=== PATIENT | female | born 1930 | race Hispanic/Latino ===

== ENCOUNTER 2016-09-20 11:00 | Inpatient (IN) | payer MEDICARE, OTHER ==
[2016-09-20 11:01] VITALS: BMI 22.6
[2016-09-20] MEDS ORDERED: Vancomycin 1gm in NS 250ml 250 ML IVPB STA (11:31)
--- NOTE | 2016-09-20 11:32 | ED PDOC ---
Arrival/HPI - General Chief Complaint: Lower Extremity Problem/Injury Time Seen by Provider: 09/20/16 11:23 Historian: Patient - History of Present Illness Narrative History of Present Illness (Text): 09/20/16 11:29 A 85 year old female was sent into the emergency department by Dr. Mota for an infection in her left 2nd toe. Patient had an xray done on 09/14/16 which showed osteomyelitis. Patient denies any fever, nausea, vomiting, diarrhea, abdominal pain, chest pain, shortness of breath or any other complaints. Patient reports she is taking Levaquin. PMD: Dr. Hernandez Time/Duration: Other (months) Symptom Course: Unchanged Quality: Other Context: Home Associated Symptoms (Text): 09/20/16 11:42 Had outpatient x-rays showing left second toe osteomyelitis and directed to emergency department for admission. Patient failed outpatient by mouth Levaquin. Past Medical History - Provider Review Nursing Documentation Reviewed: Yes - Tetanus Immunization Tetanus Immunization: Unknown - Cardiac Hx Cardiac Disorders: Yes Hx Hypertension: Yes - Pulmonary Hx Respiratory Disorders: Yes Hx Asthma: No Hx Bronchitis: Yes Hx Emphysema: No Hx Pneumonia: Yes Hx Respiratory Aspiration: No Hx Respiratory Tract Infection: No Hx Sleep Apnea: No Hx Tuberculosis: No - Neurological HX Cerebrovascular Accident: Yes - HEENT Hx HEENT Disorder: Yes (detatched retina) - Renal Hx Renal Disorder: No - Endocrine/Metabolic Hx Diabetes Mellitus Type 2: Yes - Hematological/Oncological Hx Blood Transfusions: No Hx Blood Transfusion Reaction: No - Integumentary Hx Dermatological Disorder: No - Musculoskeletal/Rheumatological Hx Arthritis: Yes - Gastrointestinal Hx Gastrointestinal Disorders: No - Genitourinary/Gynecological Hx Genitourinary Disorders: No - Psychiatric Hx Psychophysiologic Disorder: Yes Hx Anxiety: Yes Hx Substance Use: No - Surgical History Hx Cardiac Catheterization: No Hx Coronary Stent: No - Anesthesia Hx Anesthesia Reactions: No Hx Malignant Hyperthermia: No Family/Social History - Physician Review Nursing Documentation Reviewed: Yes Family/Social History: No Known Family HX Smoking Status: Never Smoked Hx Alcohol Use: No Hx Substance Use: No Allergies/Home Meds Allergies/Adverse Reactions: Allergies Penicillins Allergy (Verified 03/07/16 11:19) RASH flu vaccine Allergy (Uncoded 03/07/16 11:19) RASH Home Medications: Home Meds Medication Instructions Recorded Confirmed Warfarin [Coumadin] 3 mg PO .SEE COMMENTS 05/07/13 03/07/16 Alprazolam [Xanax] 0.25 mg PO QID 05/08/13 03/07/16 Digoxin 0.25 mg PO DAILY 05/08/13 03/07/16 Esomeprazole Magnesium [Nexium] 40 mg PO DAILY 05/08/13 03/07/16 GlipiZIDE [Glucotrol] 5 mg PO BID 05/08/13 03/07/16 Metformin HCl [Metformin] 1,000 mg PO DAILY 05/08/13 03/07/16 [place]ine 2% Opht [Isopto 0 drop TD Q6 05/08/13 03/07/16 Carpine 2% Opht Soln] Simvastatin [Simvastatin] 20 mg PO DAILY 05/08/13 03/07/16 Atenolol [Atenolol] 25 mg PO DAILY 03/07/16 03/07/16 Calcium Citrate [Calcium Citrate] 500 mg PO DAILY 03/07/16 03/07/16 Escitalopram [Lexapro] 20 mg PO DAILY 03/07/16 03/07/16 SITagliptin [Januvia] 50 mg PO DAILY 03/07/16 03/07/16 Review of Systems - Physician Review All systems were reviewed & negative as marked: Yes - Review of Systems Constitutional: absent: Fevers Respiratory: absent: SOB Cardiovascular: absent: Chest Pain Gastrointestinal: absent: Abdominal Pain, Diarrhea, Nausea, Vomiting Skin: Other (Infection in left 2nd toe) Physical Exam Vital Signs Reviewed: Yes Vital Signs Temp Pulse Resp BP Pulse Ox 09/20/16 11:15 97.6 F 72 16 151/76 H 98 Temperature: Afebrile Blood Pressure: Hypertensive Pulse: Regular Respiratory Rate: Normal Appearance: Positive for: Well-Appearing, Non-Toxic, Comfortable Pain Distress: None Mental Status: Positive for: Alert and Oriented X 3 - Systems Exam Head: Present: Atraumatic, Normocephalic Pupils: Present: PERRL Extroacular Muscles: Present: EOMI Conjunctiva: Present: Normal Respiratory/Chest: Present: Clear to Auscultation, Good Air Exchange. No: Respiratory Distress, Accessory Muscle Use Cardiovascular: Present: Regular Rate and Rhythm, Normal S1, S2. No: Murmurs Lower Extremity: Present: NORMAL PULSES, Other (Left 2nd toe ulcer). No: Edema , CALF TENDERNESS Neurological: Present: GCS=15, CN II-XII Intact, Speech Normal, Motor Func Grossly Intact Skin: Present: Warm, Dry, Normal Color. No: Rashes Psychiatric: Present: Alert, Oriented x 3, Normal Insight, Normal Concentration Medical Decision Making ED Course and Treatment: 09/20/16 11:29 Impression: A 85 year old female with a left 2nd toe infection Plan: -- Chest xray -- EKG -- Labs -- Blood culture -- Vancomycin -- Reassess and disposition Prior Visits: Notes and results from previous visits were reviewed. Patient had a foot xray done on 09/14/16, which showed: Report Date : 09/14/2016 15:18:02 PROCEDURE: Left Foot Radiographs. Dictator : Joe Benitez MD IMPRESSION: Radiographic findings 2nd digit suggestive of acute osteomyelitis. Progress Notes: 09/20/16 11:43 Discussed with who will admit 09/20/16 12:07 EKG shows normal sinus rhythm rate approximately 70 with a primary AV block and an intraventricular conduction delay with poor R waves and Q waves inferiorly similar to EKG of 03/07/2060 - RAD Interpretation Radiology Orders: 09/20/16 11:29 CHEST PORTABLE [RAD] Stat - Medication Orders Current Medication Orders: Vancomycin HCl (Vancomycin 1gm) 250 mls @ 167 mls/hr IVPB STAT STA PRN Reason: Protocol Stop: 09/20/16 13:00 - Scribe Statement The provider has reviewed the documentation as recorded by the Kira Arias Provider Scribe Attestation: All medical record entries made by the Scribe were at my direction and personally dictated by me. I have reviewed the chart and agree that the record accurately reflects my personal performance of the history, physical exam, medical decision making, and the department course for this patient. I have also personally directed, reviewed, and agree with the discharge instructions and disposition. Disposition/Present on Arrival - Present on Arrival Any Indicators Present on Arrival: No History of DVT/PE: No History of Uncontrolled Diabetes: No Urinary Catheter: No History of Decub. Ulcer: No History Surgical Site Infection Following: None - Disposition Have Diagnosis and Disposition been Completed?: Yes Diagnosis: Osteomyelitis of toe Disposition: HOSPITALIZED Disposition Time: 11:43 Patient Plan: Admission Patient Problems: Current Active Problems Problem Status Diagnosed Osteomyelitis of toe Acute Condition: GOOD
--- NOTE | 2016-09-20 12:34 | RAD ---
HISTORY: admit COMPARISON: 09/20/2016 FINDINGS: LUNGS: The lungs are hyperinflated and there is peribronchial thickening with chronic changes in both lungs. There is no focal consolidation. PLEURA: No significant pleural effusion identified, no pneumothorax apparent. CARDIOVASCULAR: Normal. OSSEOUS STRUCTURES: There is an S-shaped scoliosis in the thoracolumbar spine. VISUALIZED UPPER ABDOMEN: Normal. OTHER FINDINGS: None. IMPRESSION: COPD. No acute findings.
[2016-09-20 12:37] LABS: ADD MANUAL DIFF? NO
[2016-09-20 12:52] LABS: BASO # 0.03 K/mm3 (0.0-2.0); BASO % 0.3 % (0.0-3.0); EOS # 0.4 (0.0-0.7); EOS % 4.8 % (1.5-5.0); GRAN # 5.06 (1.4-6.5); GRAN % 58.8 % (50.0-68.0); HEMATOCRIT 36.7 % (36.0-48.0); LYMPH # 2.6 (1.2-3.4); LYMPH % 29.7 % (22.0-35.0); MEAN CELL VOLUME 90.4 fL (80.0-105.0); MEAN CORPUSCULAR HEMOGLOBIN 29.8 pg (25.0-35.0); MEAN PLATELET VOLUME 9.7 fl (7.0-11.0); MONO # 0.6 (0.1-0.6); MONO % 6.4 % (1.0-6.0); PLATELET COUNT 230 10^3/uL (120.0-450.0); RED CELL DISTRIBUTION WIDTH 13.3 % (11.5-14.5); WHITE BLOOD COUNT 8.6 10^3/ul (4.5-11.0)
[2016-09-20 12:59] LABS: BILIRUBIN,TOTAL 0.5 mg/dL (0.2-1.3); CALCIUM 9.4 mg/dL (8.4-10.5); POTASSIUM 4.8 mmol/L (3.6-5.0); TOTAL PROTEIN 7.6 g/dL (5.8-8.3)
[2016-09-20] MEDS ORDERED: Meropenem 1 GM in Sodium Chloride 0.9% 100 ML IVPB SCH (16:00)
[2016-09-20] MEDS ORDERED: Pneumococcal 23-Valent Vaccine IM ONE (16:13)
--- NOTE | 2016-09-20 18:36 | HP ---
HISTORY OF PRESENT ILLNESS: The patient is an 85-year-old, states she was having some pain and disco mfort along with swelling of the left second toe. She was under care of Dr. Mota. She was follow ed in the wound care center. She had ulcer on the ____ aspect of the second toe of left foot. Yeste rday she sent her for x-ray of the foot and when she received the result she was called yesterday to come to Emergency Room because it suggested acute osteomyelitis. The patient came to the ER for furt her IV antibiotic and wound care. She denies any fever or chills. No history of nausea or vomiting, no hemoptysis, no hematemesis. PAST MEDICAL HISTORY: Significant for: 1. Hypertension. 2. Coronary artery disease, status post angioplasty. 3. History of ____ischemic cardiomyopathy. 4. Non-insulin dependent diabetes. 5. Chronic atrial fibrillation. 6. Carotid stenosis. 7. History of deep venous thrombosis. 8. Hypertension. 9. Status post right toe cellulitis and osteomyelitis and had amputation done. ALLERGIES: PENICILLIN, INFLUENZA VACCINE. PAST SURGICAL HISTORY: Significant for cataract extraction. History of mandibular fracture and nasa l fracture in 06/2015 when she was transferred to [facility]. MEDICATIONS AT HOME: 1. She is on Coumadin 3 mg daily. 2. Atenolol 25 daily. 3. Calcium citrate. 4. Digoxin 0.25 daily. 5. Lexapro 20 mg daily. 6. Metformin 1000 daily. 7. Glipizide 5 mg twice a day. 8. Xanax 0.25 t.i.d. p.r.n. 9. Januvia 50 mg daily. 10. Omeprazole 40 mg daily. 11. Simvastatin 20 mg daily. SOCIAL HISTORY: She lives with her son. No history of smoking, drinking or alcohol use. PHYSICAL EXAMINATION: GENERAL: She is awake and alert, communicative. VITAL SIGNS: She is afebrile, pulse 74, respirations 20, blood pressure 147/82. LUNGS: Bilateral fair airflow, no rhonchi or crackle. HEART: S1, S2 audible. No murmur. ABDOMEN: Soft, nontender, no rebound, no guarding. NEUROLOGIC: She is awake and alert, communicative. LABORATORY DATA: WBC is 8.6, hemoglobin 12, hematocrit 36, platelet of 230. Chemistry: Sodium 137, potassium 4.8, chloride 103, CO2 ____, BUN 26, creatinine 1.1, blood sugar 156, random blood sugar 2 06. X-ray chest is unremarkable. Left foot x-ray consistent with second toe osteomyelitis. X-ray c hest shows COPD. ASSESSMENT: 1. Left second toe osteomyelitis. 2. Chronic obstructive pulmonary disease. 3. Hypertension. 4. Chronic atrial fibrillation. 5. Hyperlipidemia. 6. Coronary artery disease, status post angioplasty. PLAN: We will empirically start her on meropenem since she is ALLERGIC TO PENICILLIN AND VANCOMYCIN. Continue her on usual medication, monitor her blood sugar. Consult with Dr. Mckeon and Dr. Ximena jessica has been requested. We will continue her on her usual diabetes medications including Januvia, g lipizide and metformin, and will follow up her CBC and CMP in a.m. Mary Wilkerson MD cc: [phone] TT: 09/20/2016 18:35:35 adalberto
[2016-09-20] MEDS: Insulin Reg-MEDIUM-Coverage SC SCH ×2 (19:16→21:43)
[2016-09-20] MEDS: Digoxin 250 mcg (0.25 mg) Tab PO SCH (19:22)
[2016-09-20] MEDS: Meropenem 1 GM in Sodium Chloride 0.9% 100 ML IVPB SCH (21:56)
[2016-09-20] MEDS ORDERED: Vancomycin 500mg in NS 100 ML IVPB SCH (22:00)
[2016-09-21 06:50] LABS: INR 1.68 (0.93-1.08)
[2016-09-21] MEDS: Insulin Reg-MEDIUM-Coverage SC SCH ×4 (08:11→22:00)
--- NOTE | 2016-09-21 09:44 | CARD ---
APPROVED REPORT EKG Measurement Heart [id number] <Conclusion> Sinus rhythm with 1st degree AV block Left axis deviation LVH Inferior infarct, old Anteroseptal infarct,old Suspect lead placement issue V 4 -6
--- NOTE | 2016-09-21 09:46 | CON ---
DATE: 09/21/2016 HISTORY OF PRESENT ILLNESS: An 85-year-old female seen at bedside for consultation, evaluation and m anagement of diabetic ulcer at the distal aspect of the left second toe. The patient is being seen b eddie Mota and x-rays taken on 09/14/2016 reveal radiographic erosions suspicious for osteomyelitis . The patient is offering no new complaints and is afebrile. PAST MEDICAL HISTORY: Significant for longstanding uncontrolled non-insulin dependent diabetes, esse ntial hypertension, ischemic cardiomyopathy, atrial fibrillation, and history of deep vein thrombosis . PAST SURGICAL HISTORY: Includes angioplasty, cataract surgery. ALLERGIES: The patient has numerous allergies which include VANCOMYCIN AND PENICILLIN, FLU VACCINE. ACTIVE MEDICATIONS: Include Xanax and simvastatin, Januvia, Coumadin, metformin, Glucotrol, Lexapro, atenolol, digoxin, and Nexium. SOCIAL HISTORY: The patient lives at home with family. Denies a history of substance abuse, does no t drink alcohol, and never smoked. OBJECTIVE: Nonpalpable posterior tibial pulse and palpable dorsalis pedis pulse noted bilaterally. Absent pedal hair growth noted bilaterally. Lower extremity skin presents thin, shiny and discolored . Capillary filling time is delayed x 10. The patient has decreased protective sensation using 5.07 gram monofilament wire testing bilaterally. There is noted to be a full-thickness ulceration at the distal aspect of the left second digit. The base of the ulceration is primarily granular. There is noted to be serous drainage. Wound does probe to bone. Tip of the toe is edematous and erythematou s. There are no signs of ascending cellulitis. ASSESSMENT: Yanez grade 2 diabetic ulceration to the left distal second digit with clinical osteomy elitis. PLAN: I spoke with Dr. Mckeon, he will cover patient empirically. The plan is to order MRI to c onfirm osteomyelitis; however, the patient is showing signs of osteomyelitis and will need a distal l eft second digit amputation. Culture was taken today and submitted for sensitivity. Wound was clean sed with normal sterile saline. We will apply Bactroban and a dry sterile dressing. We will await M RI results and plan for surgery of the left second digit sometime during the week. We will continue with antibiotics as per infectious disease. Rajiv Coronado DPM cc: [phone] TT: 09/21/2016 09:45:19 Confirmation # [id number] Dictation # [id number] jn
[2016-09-21] MEDS: Digoxin 250 mcg (0.25 mg) Tab PO SCH (10:54)
[2016-09-21] MEDS: Meropenem 1 GM in Sodium Chloride 0.9% 100 ML IVPB SCH ×2 (10:55→21:39)
--- NOTE | 2016-09-21 12:43 | CON ---
DATE: 09/21/2016 The patient seen earlier today in room 375, bed 1. CHIEF COMPLAINT: Left foot infection times several days. HISTORY OF PRESENT ILLNESS: An 85-year-old female with past medical history significant for hyperten jyotsna, diabetes mellitus, bronchitis, peripheral vascular disease, TIA, CVA, arthritis, anxiety disord er who was admitted because of left foot infection of several days. The patient for possible OR as p er discussion with podiatry. The patient denies any fevers or any chills. PAST MEDICAL HISTORY: Significant for TIA, CVA, arthritis, anxiety, hypertension, diabetes, bronchit is, peripheral vascular disease, atrial fibrillation, thyroid nodules. PAST SURGICAL HISTORY: Significant for jaw surgery and a right second toe amputation. ALLERGIES: PENICILLIN AND VANCOMYCIN. SHE DEVELOPS A RASH. MEDICATIONS: At home include the patient to be on Coumadin, statin and metformin and Glucotrol, aten olol, Xanax, Lexapro. PHYSICAL EXAMINATION: GENERAL: The patient is in bed, no acute distress, answering questions appropriately. VITAL SIGNS: Temperature of 98, blood pressure is 160/70, respiratory rate of 20, heart rate of 75. HEENT: Unremarkable. NECK: Supple. LUNGS: Have decreased breath sounds. HEART: Normal S1, S2. ABDOMEN: Soft, nontender. EXTREMITIES: Examination of the left second toe there is an ulcer with erythema. LABORATORY EXAMINATION: Reveals a white count of 8.6, hemoglobin of 12, platelets of 230. Sed rate of 33. Coagulation is noted. Chemistries reveal the BUN of 26, creatinine of 1.1. C-reactive prote in is 0.9. Dr. Coronado's consultation is reviewed, plans to take the patient to the OR and schedule MRI. ASSESSMENT AND PLAN: This is an 85-year-old female with hypertension, diabetes, bronchitis, transien t ischemic attack, cerebrovascular accident, arthritis, anxiety, atrial fibrillation, thyroid nodule, left second toe ulcer and cellulitis and must rule out underlying osteomyelitis. Dr. Reynoso has star kerry the patient on daptomycin and meropenem pending OR cultures and pathology report and MRI report. Will follow closely with you. Dario Mckeon MD cc: [phone] TT: 09/21/2016 12:42:02 Confirmation # [id number] Dictation # [id number] jn
--- NOTE | 2016-09-21 16:16 | PN ---
DATE: 09/21/2016 An 85-year-old seen and examined, lying in bed, seems to be comfortable the chest pain, no shortness of breath, no nausea, vomiting or diarrhea PHYSICAL EXAMINATION: VITAL SIGNS: She is afebrile, pulse 70, respirations 20, blood pressure 167/74. LUNGS: Bilateral fair airflow, no rhonchi or crackle. HEART: S1, S2 audible. ABDOMEN: Soft, nontender, no rebound, no guarding. NEUROLOGIC: She is awake and alert, communicative. EXTREMITIES: Bilaterally no edema, no ulcer. Left second toe is in the dressing done by Dr. Coronado. LABORATORY DATA: ESR is 33. PT is 18.1, INR 1.68. Chemistry: Blood sugar is 245. Her wound cultu res done, they are pending. Blood cultures are negative. ASSESSMENT: 1. Left second toe osteomyelitis. 2. Chronic atrial fibrillation. 3. Hypertension. 4. Hyperlipidemia. 5. History of deep vein thrombosis. 6. Carotid stenosis. 7. Noninsulin dependent diabetes. PLAN: I will give her Coumadin 6 mg today since she is subtherapeutic. Currently, she is on IV anti biotic as recommended by ID. She is on glipizide 5 mg twice a day. She is on daptomycin and Januvia . Continue on digoxin. She is on Lexapro and statin, will continue that. She is also receiving janes openem, vancomycin has been discontinued. She is on metformin 1000 daily. Since her GFR is 47, will split her metformin to 500 twice a day and continue Januvia 50 daily and monitor her blood sugar, fo llow up PT/INR on Friday. Mary Wilkerson MD cc: [phone] TT: 09/21/2016 16:15:45 Confirmation # [id number] Dictation # [id number] jn
[2016-09-22] MEDS: Insulin Reg-MEDIUM-Coverage SC SCH ×4 (07:43→22:00)
[2016-09-22] MEDS: Meropenem 1 GM in Sodium Chloride 0.9% 100 ML IVPB SCH ×2 (09:50→21:20)
[2016-09-22] MEDS: Digoxin 250 mcg (0.25 mg) Tab PO SCH (09:50)
--- NOTE | 2016-09-22 13:02 | PN ---
DATE: 09/22/2016 The patient seen earlier today in 375, bed 1. No fevers and chills. PHYSICAL EXAMINATION: VITAL SIGNS: Temperature is 98, blood pressure is 160/70, respiratory rate of 18. HEENT: Unremarkable. NECK: Supple. LUNGS: Have decreased breath sounds. HEART: Normal S1, S2. ABDOMEN: Soft, nontender. LABORATORY DATA: Reveals a white count of 8.6, hemoglobin of 12, platelets of 230, sed rate is 33. Chemistries are noted. Creatinine is 1.1. Left foot culture is gram-positive cocci in clusters. Th e blood cultures are negative. Currently, the patient is on daptomycin and meropenem. ASSESSMENT AND PLAN: An 85-year-old female with hypertension, diabetes, bronchitis, transient ischem ic attack, cerebrovascular accident, arthritis, anxiety, atrial fibrillation, thyroid nodule with a l eft second toe ulcer and cellulitis. Must rule out underlying osteomyelitis. Awaiting for culture a nd MRI results. The patient is for possible surgery this week. Case discussed with PMD. Dario Mckeon MD cc: [phone] TT: 09/22/2016 13:01:31 Confirmation # [id number] Dictation # [id number] betzaida
--- NOTE | 2016-09-23 00:42 | PN ---
DATE: 09/22/2016 HISTORY OF PRESENT ILLNESS: The patient is an 85-year-old female admitted with pain in the left seco nd toe. She has been to wound care center. There is an ulceration on the second left toe. Osteomye litis of the toe is being ruled out. ID consultation, Dr. Mckeon is requested. She is currently on IV antibiotics. Denies any fever or chills. No rigors. On admission, she had mild coagulopathy . Monocytosis and mild anemia. No pain now. PAST MEDICAL HISTORY: Hypertension, coronary artery disease, ischemic cardiomyopathy, diabetes melli tus type 2, chronic atrial fibrillation, history of DVT, osteomyelitis of the right toe. ALLERGIES: PENICILLIN, FLU VACCINE. PAST SURGICAL HISTORY: Cataract extraction, mandibular fracture, nasal fracture in 2014. FAMILY HISTORY: Not significant mother or father. SOCIAL HISTORY: Lives at home. PERSONAL HISTORY: No history of smoking or alcohol abuse. No history of IV drug abuse. MEDICATIONS: Coumadin 3 mg daily, atenolol 25 mg daily, digoxin 0.25 mg daily, metformin 1000 mg heriberto ly, glipizide 5 mg daily, Xanax 0.25 mg p.o. t.i.d., Januvia 50 mg daily, omeprazole 40 mg daily, sim vastatin 20 mg daily. PHYSICAL EXAMINATION: GENERAL: Awake, alert, oriented x 3. VITAL SIGNS: Stable, afebrile, temperature 98.7, heart rate 70 per minute, blood pressure 140/60, re spiratory rate 20 per minute. HEENT: Normal. NECK: No lymphadenopathy. CHEST: Air entry present, equal bilateral. No rhonchi, no crepitation. CARDIOVASCULAR: S1, S2 normal. No murmur, no gallop. ABDOMEN: Soft, nontender, no hepatosplenomegaly. NEUROLOGIC: Awake, alert, oriented x 3. No sensory motor deficit. EXTREMITIES: Left extremity in dressing. SPINE: Normal. LYMPHADENOPATHY: None. LABORATORY DATA: White count 8.6, hemoglobin 12.1, hematocrit 36.7, platelet count 230, glucose 142. PT 18.1, INR 1.6. ASSESSMENT: 1. Left toe cellulitis. 2. Chronic obstructive pulmonary disease. 3. Hypertension. 4. Atrial fibrillation. 5. History of deep venous thrombosis. 6. Coronary artery disease, status post angioplasty. 7. Anemia. PLAN: She is currently on IV antibiotic with daptomycin and meropenem for osteomyelitis. Podiatry, Dr. Mota following. Will continue antidiabetic medications, Januvia 50 mg daily and metformin 500 mg p.o. daily. She is on Coumadin 6 mg daily. We will do PT/INR. INR was subtherapeutic on 09/21. We will repeat PT/INR tomorrow. We will continue cardiac medications, digoxin 0.25 mg daily, Lipit or 10 mg daily and atenolol 25 mg daily. Continue Xanax 2.5 mg p.o. q.i.d. for anxiety. MRI of the left foot to rule out osteomyelitis. Katelyn Dobson MD cc: [id number] TT: 09/23/2016 00:41:15 Confirmation # [id number] Dictation # [id number] mn
[2016-09-23 06:38] LABS: INR 1.52 (0.93-1.08)
--- NOTE | 2016-09-23 08:14 | CON ---
DATE: 09/21/2016 ADDENDUM VITAL SIGNS: Today reveal temperature of 98.3, pulse rate of 75, blood pressure of 147/82, respirato ry rate of 20. LABORATORY FINDINGS: Reveal a white count of 8.6, hemoglobin of 12.1, hematocrit of 36.7, platelet c ount of 230 and an ESR of 33. There is no microbiology report noted. Rajiv Coronado DPM cc: [phone] TT: 09/21/2016 10:11:58 Confirmation # [id number] Dictation # [id number] tn
[2016-09-23] MEDS: Insulin Reg-MEDIUM-Coverage SC SCH ×4 (09:06→21:41)
[2016-09-23] MEDS: Digoxin 250 mcg (0.25 mg) Tab PO SCH (09:07)
[2016-09-23] MEDS: Meropenem 1 GM in Sodium Chloride 0.9% 100 ML IVPB SCH (09:08)
--- NOTE | 2016-09-23 12:30 | PN ---
DATE: 09/23/2016 SUBJECTIVE: The patient is 85 years old. Seen and examined. Denies any chest pain, no shortness of breath, no nausea, vomiting, no diarrhea. PHYSICAL EXAMINATION: VITAL SIGNS: She is afebrile, pulse 60, respirations 17, blood pressure 160/73. LUNGS: Bilateral good airflow, no rhonchi or crackle. HEART: S1, S2 audible. ABDOMEN: Soft, nontender, no rebound, no guarding. NEUROLOGIC: She is awake and alert, communicative. EXTREMITIES: Her left second toe is in a dressing. No erythema, no rashes. LABORATORY: PT is 16.4, INR 1.52. Chemistries: Blood sugar is 95. Her foot wound culture positive for MRSA. Blood cultures are negative. She just went for MRI of the foot, results are pending. ASSESSMENT AND PLAN: 1. Left second toe osteomyelitis. 2. Chronic atrial fibrillation. 3. Hypertension. 4. Methicillin-resistant Staphylococcus aureus Wound infection. 5. Non-insulin dependent diabetes. 6. History of deep vein thrombosis. PLAN: Currently, the patient is getting local treatment. She is on Coumadin. She was given 6 mg ye day. We will give her 8 mg today. She is also on daptomycin. Blood sugar is being monitored. She is on glipizide 5 mg twice a day. Blood sugar numbers are running decent. Will continue on via 50 mg daily. She is on Lexapro. We will continue that. She is receiving meropenem. She is on metformin 500 twice a day and start her on losartan 50 mg daily. Discuss[address] with Dr. Mota. She is planning to do a second toe amputation, once MRI result for the foot is available. Mary Wilkerson MD cc: [phone] TT: 09/23/2016 12:30:01 Confirmation # [id number] Dictation # [id number] adalberto
--- NOTE | 2016-09-23 12:54 | MRI ---
PROCEDURE: MRI of the left foot without contrast. HISTORY: 2nd toe left ulcer COMPARISON: Comparison is made to the previous x-ray dated 09/14/2016 TECHNIQUE: Axial coronal and sagittal MRI of the left foot were obtained. No IV contrast was given. FINDINGS: Study demonstrate bone marrow edema and cortical erosion at the distal phalanx of the 2nd toe suspicious for osteomyelitis. No other bone marrow edema or cortical erosion seen in the left foot. Deformity of the distal phalanx of the left big toe is again noted without evidence of bone marrow edema. Soft tissue swelling and edema seen at the distal portion of the left foot more prominent in the 2nd 2. No evidence of discrete drainable fluid collection in this noncontrast study. Arthritic degenerative changes seen at the tarsal and tarsal metatarsal joints. IMPRESSION: Bone marrow edema and cortical erosion seen at the distal phalanx of the 2nd toe suspicious for osteomyelitis. Mild soft tissue edema and inflammatory changes more prominent at the 2nd toe. No evidence of discrete drainable fluid collection.
--- NOTE | 2016-09-23 16:16 | CP.PCM.PN ---
Subjective - Date & Time of Evaluation Date of Evaluation: 09/23/16 Time of Evaluation: 10:30 - Subjective Subjective: Comfortable, not in distress, no fevers overnight. Objective - Vital Signs/Intake and Output Vital Signs (last 24 hours): Temp Pulse Resp BP Pulse Ox 98.6 F 60 17 161/73 H 95 09/23/16 08:30 09/23/16 09:09 09/23/16 08:30 09/23/16 09:09 09/23/16 08:30 Intake and Output: 09/23/16 09/23/16 06:59 18:59 Intake Total 1000 Output Total 3 Balance 997 - Medications Medications: Current Medications Alprazolam (Xanax) 0.25 mg PO QID [facility] PRN Reason: Protocol Stop: 09/27/16 18:01 Last Admin: 09/23/16 09:09 Dose: 0.25 mg Atenolol (Tenormin) 25 mg PO DAILY [facility] Last Admin: 09/23/16 09:09 Dose: 25 mg Atorvastatin Calcium (Lipitor) 10 mg PO DAILY [facility] Last Admin: 09/23/16 09:08 Dose: 10 mg Digoxin (Lanoxin) 0.25 mg PO DAILY [facility] Last Admin: 09/23/16 09:07 Dose: 0.25 mg Escitalopram Oxalate (Lexapro) 20 mg PO DAILY [facility] Last Admin: 09/23/16 09:07 Dose: 20 mg Glipizide (Glucotrol) 5 mg PO BID [facility] Last Admin: 09/23/16 09:06 Dose: 5 mg Meropenem 1 gm/ Sodium (Chloride) 100 mls @ 100 mls/hr IVPB Q12 [facility] PRN Reason: Protocol Stop: 09/27/16 22:01 Last Admin: 09/23/16 09:08 Dose: 100 mls/hr Daptomycin 250 mg/ Sodium (Chloride) 100 mls @ 200 mls/hr IV Q24H [facility] PRN Reason: Protocol Stop: 09/27/16 19:01 Last Admin: 09/22/16 18:49 Dose: 200 mls/hr Insulin Human Regular (Humulin R Med) 0 units SC ACHS [facility] PRN Reason: Protocol Last Admin: 09/23/16 09:06 Dose: Not Given Metformin HCl (Glucophage) 500 mg PO ACBD [facility] Last Admin: 09/23/16 09:05 Dose: 500 mg Mupirocin (Bactroban Ointment) 0 gm TOP BID [facility] Last Admin: 09/23/16 09:05 Dose: 1 applic Sitagliptin Phosphate (Januvia) 50 mg PO DAILY [facility] Last Admin: 09/23/16 09:06 Dose: 50 mg Warfarin Sodium (Coumadin) 6 mg PO 1800 [facility] PRN Reason: Protocol Last Admin: 09/22/16 17:07 Dose: 6 mg - Labs Labs: 09/20/16 12:20 09/20/16 12:20 PT 16.4 Seconds (9.9-11.8) H 09/23/16 06:20 INR 1.52 (0.93-1.08) H 09/23/16 06:20 - Constitutional Appears: Non-toxic, No Acute Distress - Head Exam Head Exam: NORMAL INSPECTION - Respiratory Exam Respiratory Exam: Decreased Breath Sounds - Cardiovascular Exam Cardiovascular Exam: +S1, +S2 - GI/Abdominal Exam GI & Abdominal Exam: Soft. absent: Tenderness Assessment and Plan - Assessment and Plan (Free Text) Plan: Assessment left 2nd toe ulcer with evidence of osteomyelitis on MRI; ulcer growing MRSA history of osteomyelitis of the right foot 2nd toe with associated ulcer, with Methicillin-sensitive Staph aureus S/P amputation Acute renal failure HTN DM history of bronchitis history of peripheral vascular disease history of transient ischemic attack history of CVA arthritis anxiety disorder Plan continue Daptomycin; awaiting plan of Podiatry Will continue to follow clinically
--- NOTE | 2016-09-23 16:44 | CP.PCM.PN ---
<GilsonLoreto - Last Filed: 09/23/16 16:40> Subjective - Date & Time of Evaluation Date of Evaluation: 09/23/16 Time of Evaluation: 16:40 - Subjective Subjective: 85 y/o female seen at bedside for left 2nd toe ulceration at the distal aspect. Patient resting comfortably in bed, in NAD and AAOx3. Patient denies any pain in her foot and denies any pedal complaints at this time. Patient going for MRI today to rule out osteomyelitis. She denies n/f/v/c/d/sob. Objective - Vital Signs/Intake and Output Vital Signs (last 24 hours): Temp Pulse Resp BP Pulse Ox 98.6 F 60 17 161/73 H 95 09/23/16 08:30 09/23/16 09:09 09/23/16 08:30 09/23/16 09:09 09/23/16 08:30 Intake and Output: 09/23/16 09/23/16 06:59 18:59 Intake Total 1000 660 Output Total 3 Balance 997 660 - Medications Medications: Current Medications Alprazolam (Xanax) 0.25 mg PO QID [facility] PRN Reason: Protocol Stop: 09/27/16 18:01 Last Admin: 09/23/16 09:09 Dose: 0.25 mg Atenolol (Tenormin) 25 mg PO DAILY [facility] Last Admin: 09/23/16 09:09 Dose: 25 mg Atorvastatin Calcium (Lipitor) 10 mg PO DAILY [facility] Last Admin: 09/23/16 09:08 Dose: 10 mg Digoxin (Lanoxin) 0.25 mg PO DAILY [facility] Last Admin: 09/23/16 09:07 Dose: 0.25 mg Escitalopram Oxalate (Lexapro) 20 mg PO DAILY [facility] Last Admin: 09/23/16 09:07 Dose: 20 mg Glipizide (Glucotrol) 5 mg PO BID [facility] Last Admin: 09/23/16 09:06 Dose: 5 mg Daptomycin 250 mg/ Sodium (Chloride) 100 mls @ 200 mls/hr IV Q24H [facility] PRN Reason: Protocol Stop: 09/27/16 19:01 Last Admin: 09/22/16 18:49 Dose: 200 mls/hr Insulin Human Regular (Humulin R Med) 0 units SC ACHS [facility] PRN Reason: Protocol Last Admin: 09/23/16 13:30 Dose: Not Given Losartan Potassium (Cozaar) 50 mg PO DAILY [facility] Metformin HCl (Glucophage) 500 mg PO ACBD [facility] Last Admin: 09/23/16 09:05 Dose: 500 mg Mupirocin (Bactroban Ointment) 0 gm TOP BID [facility] Last Admin: 09/23/16 09:05 Dose: 1 applic Sitagliptin Phosphate (Januvia) 50 mg PO DAILY [facility] Last Admin: 09/23/16 09:06 Dose: 50 mg Warfarin Sodium (Coumadin) 8 mg PO 1800 [facility] PRN Reason: Protocol - Labs Labs: 09/20/16 12:20 09/20/16 12:20 PT 16.4 Seconds (9.9-11.8) H 09/23/16 06:20 INR 1.52 (0.93-1.08) H 09/23/16 06:20 - Constitutional Appears: Well, Non-toxic, No Acute Distress - Extremities Exam Additional comments: O: Vasc: nonpalpable DP or PT pulses bilaterally, absent pedal hair growth, lower extremity skin shiny and discolored, CFT < 5 sec to all digits neuro: grossly diminished derm; full thickness ulceration at the distal aspect of left 2nd digit- base is granular with hyperkeratotic border, serous drainage noted, no pus, no probe to bone, no undermining, no ascending cellulitis ortho: no pain on palpation to 2nd digit of left foot - Neurological Exam Neurological Exam: Alert, Awake, Oriented x3 - Psychiatric Exam Psychiatric exam: Normal Affect, Normal Mood Assessment and Plan - Assessment and Plan (Free Text) Assessment: 85 y/o female seen at bedside for left 2nd digit ulceration secondary to diabetes Plan: patient evaluated and chart reviewed discussed in detail with attending Dr. Mota labs and vitals reviewed MRI shows of left foot: cortical erosion and bone marrow edema of distal phalanx of 2nd digit consistent with OM patient go to to OR for 2nd digit distal phalanx amputation later this week patient to stop coumadin for pre-op management for OR continue IV abx as per ID applied DSD to left foot podiatry will continue to follow while patient remains in house <Janelle Mota - Last Filed: 09/27/16 14:51> Objective - Vital Signs/Intake and Output Vital Signs (last 24 hours): Temp Pulse Resp BP Pulse Ox 98.1 F 63 20 141/60 97 09/27/16 06:00 09/27/16 10:37 09/27/16 06:00 09/27/16 10:37 09/27/16 06:00 Intake and Output: 09/27/16 09/27/16 06:59 18:59 Intake Total 540 800 Output Total 400 Balance 540 400 - Medications Medications: Current Medications Acetaminophen (Tylenol 325mg Tab) 650 mg PO Q6H PRN PRN Reason: Fever >100.4 F Last Admin: 09/25/16 19:57 Dose: 650 mg Acetaminophen (Tylenol 325mg Tab) 650 mg PO Q4H [facility]N PRN Reason: Pain, Mild (1-3) Alprazolam (Xanax) 0.25 mg PO QID [facility] PRN Reason: Protocol Stop: 09/27/16 18:01 Last Admin: 09/27/16 10:37 Dose: 0.25 mg Atenolol (Tenormin) 25 mg PO DAILY [facility] Last Admin: 09/27/16 10:37 Dose: 25 mg Atorvastatin Calcium (Lipitor) 10 mg PO DAILY [facility] Last Admin: 09/27/16 10:36 Dose: 10 mg Digoxin (Lanoxin) 0.25 mg PO DAILY [facility] Last Admin: 09/27/16 10:36 Dose: 0.25 mg Enoxaparin Sodium (Lovenox) 60 mg SC 0600,1800 [facility] PRN Reason: Protocol Last Admin: 09/27/16 06:12 Dose: 60 mg Escitalopram Oxalate (Lexapro) 20 mg PO DAILY [facility] Last Admin: 09/27/16 10:36 Dose: 20 mg Glipizide (Glucotrol) 5 mg PO BID [facility] Last Admin: 09/27/16 10:36 Dose: 5 mg Daptomycin 250 mg/ Sodium (Chloride) 100 mls @ 200 mls/hr IV Q24H [facility] PRN Reason: Protocol Stop: 09/30/16 19:01 Insulin Human Regular (Humulin R Med) 0 units SC ACHS [facility] PRN Reason: Protocol Last Admin: 09/27/16 12:51 Dose: 1 units Losartan Potassium (Cozaar) 50 mg PO DAILY [facility] Last Admin: 09/27/16 10:35 Dose: 50 mg Metformin HCl (Glucophage) 500 mg PO ACBD [facility] Last Admin: 09/27/16 10:35 Dose: 500 mg Mupirocin (Bactroban Ointment) 0 gm TOP BID [facility] Last Admin: 09/27/16 10:35 Dose: 1 applic Oxycodone/Acetaminophen (Percocet 5/325 Mg Tab) 1 tab PO Q4H [facility] PRN Reason: Pain, moderate (4-7) Stop: 09/29/16 08:59 Oxycodone/Acetaminophen (Percocet 5/325 Mg Tab) 2 tab PO Q4H PRN PRN Reason: Pain, severe (8-10) Stop: 09/29/16 08:59 Sitagliptin Phosphate (Januvia) 50 mg PO DAILY [facility] Last Admin: 09/27/16 10:36 Dose: 50 mg Warfarin Sodium (Coumadin) 10 mg PO 1800 [facility] PRN Reason: Protocol Last Admin: 09/26/16 17:29 Dose: 10 mg - Labs Labs: 09/25/16 07:00 09/25/16 07:15 PT 13.4 Seconds (9.9-11.8) H 09/25/16 07:15 INR 1.24 (0.93-1.08) H 09/25/16 07:15 Attending/Attestation - Attestation I have personally seen and examined this patient.: Yes I have fully participated in the care of the patient.: Yes I have reviewed all pertinent clinical information, including history, physical exam and plan: Yes
[2016-09-24] MEDS: Insulin Reg-MEDIUM-Coverage SC SCH ×4 (10:34→21:46)
[2016-09-24] MEDS: Digoxin 250 mcg (0.25 mg) Tab PO SCH (10:44)
--- NOTE | 2016-09-24 11:00 | CP.PCM.PN ---
<Loreto Riggins - Last Filed: 09/24/16 10:56> Subjective - Date & Time of Evaluation Date of Evaluation: 09/24/16 Time of Evaluation: 10:57 - Subjective Subjective: 85 y/o female seen at bedside for left 2nd toe ulceration at the distal aspect. Patient seen at bedside with attending Dr. Mota. Patient is resting comfortably, in NAD and AAOx3. Patient denies any pain in her foot and denies any pedal complaints at this time. Patient had MRI taken yesterday to rule out osteomyelitis. She denies n/f/v/c/d/sob. Objective - Vital Signs/Intake and Output Vital Signs (last 24 hours): Temp Pulse Resp BP Pulse Ox 97.9 F 80 20 120/60 97 09/24/16 09:04 09/24/16 10:44 09/24/16 09:04 09/24/16 10:44 09/24/16 09:04 Intake and Output: 09/24/16 09/24/16 06:59 18:59 Intake Total 620 120 Balance 620 120 - Medications Medications: Current Medications Alprazolam (Xanax) 0.25 mg PO QID [facility] PRN Reason: Protocol Stop: 09/27/16 18:01 Last Admin: 09/24/16 10:45 Dose: 0.25 mg Atenolol (Tenormin) 25 mg PO DAILY [facility] Last Admin: 09/24/16 10:44 Dose: 25 mg Atorvastatin Calcium (Lipitor) 10 mg PO DAILY [facility] Last Admin: 09/24/16 10:44 Dose: 10 mg Digoxin (Lanoxin) 0.25 mg PO DAILY [facility] Last Admin: 09/24/16 10:44 Dose: 0.25 mg Escitalopram Oxalate (Lexapro) 20 mg PO DAILY [facility] Last Admin: 09/24/16 10:44 Dose: 20 mg Glipizide (Glucotrol) 5 mg PO BID [facility] Last Admin: 09/24/16 10:44 Dose: 5 mg Daptomycin 250 mg/ Sodium (Chloride) 100 mls @ 200 mls/hr IV Q24H [facility] PRN Reason: Protocol Stop: 09/27/16 19:01 Last Admin: 09/23/16 22:28 Dose: 200 mls/hr Insulin Human Regular (Humulin R Med) 0 units SC ACHS [facility] PRN Reason: Protocol Last Admin: 09/24/16 10:34 Dose: Not Given Losartan Potassium (Cozaar) 50 mg PO DAILY [facility] Last Admin: 09/24/16 10:43 Dose: 50 mg Metformin HCl (Glucophage) 500 mg PO ACBD [facility] Last Admin: 09/24/16 10:46 Dose: 500 mg Mupirocin (Bactroban Ointment) 0 gm TOP BID [facility] Last Admin: 09/24/16 10:37 Dose: 1 applic Sitagliptin Phosphate (Januvia) 50 mg PO DAILY [facility] Last Admin: 09/24/16 10:44 Dose: 50 mg Warfarin Sodium (Coumadin) 8 mg PO 1800 [facility] PRN Reason: Protocol - Labs Labs: 09/20/16 12:20 09/20/16 12:20 PT 16.4 Seconds (9.9-11.8) H 09/23/16 06:20 INR 1.52 (0.93-1.08) H 09/23/16 06:20 - Constitutional Appears: Well, Non-toxic, No Acute Distress - Extremities Exam Additional comments: O: Vasc: nonpalpable DP or PT pulses bilaterally, absent pedal hair growth, lower extremity skin shiny and discolored, CFT < 5 sec to all digits neuro: grossly diminished derm; full thickness ulceration at the distal aspect of left 2nd digit- base is granular with hyperkeratotic border, serous drainage noted, no pus, no probe to bone, no undermining, no ascending cellulitis ortho: no pain on palpation to 2nd digit of left foot - Neurological Exam Neurological Exam: Alert, Awake, Oriented x3 - Psychiatric Exam Psychiatric exam: Normal Affect, Normal Mood Assessment and Plan - Assessment and Plan (Free Text) Assessment: 85 y/o female seen at bedside for left 2nd digit ulceration secondary to diabetes Plan: patient evaluated and chart reviewed discussed in detail with attending Dr. Mota labs and vitals reviewed MRI shows of left foot: cortical erosion and bone marrow edema of distal phalanx of 2nd digit consistent with OM patient go to to OR for 2nd digit distal phalanx amputation on continue to hold coumadin for pre-op management for OR continue IV abx as per ID wound cx = MRSA applied DSD to left foot podiatry will continue to follow while patient remains in house <Janelle Mota - Last Filed: 09/27/16 14:53> Objective - Vital Signs/Intake and Output Vital Signs (last 24 hours): Temp Pulse Resp BP Pulse Ox 98.1 F 63 20 141/60 97 09/27/16 06:00 09/27/16 10:37 09/27/16 06:00 09/27/16 10:37 09/27/16 06:00 Intake and Output: 09/27/16 09/27/16 06:59 18:59 Intake Total 540 800 Output Total 400 Balance 540 400 - Medications Medications: Current Medications Acetaminophen (Tylenol 325mg Tab) 650 mg PO Q6H PRN PRN Reason: Fever >100.4 F Last Admin: 09/25/16 19:57 Dose: 650 mg Acetaminophen (Tylenol 325mg Tab) 650 mg PO Q4H PRN PRN Reason: Pain, Mild (1-3) Alprazolam (Xanax) 0.25 mg PO QID [facility] PRN Reason: Protocol Stop: 09/27/16 18:01 Last Admin: 09/27/16 10:37 Dose: 0.25 mg Atenolol (Tenormin) 25 mg PO DAILY [facility] Last Admin: 09/27/16 10:37 Dose: 25 mg Atorvastatin Calcium (Lipitor) 10 mg PO DAILY [facility] Last Admin: 09/27/16 10:36 Dose: 10 mg Digoxin (Lanoxin) 0.25 mg PO DAILY [facility] Last Admin: 09/27/16 10:36 Dose: 0.25 mg Enoxaparin Sodium (Lovenox) 60 mg SC 0600,1800 [facility] PRN Reason: Protocol Last Admin: 09/27/16 06:12 Dose: 60 mg Escitalopram Oxalate (Lexapro) 20 mg PO DAILY [facility] Last Admin: 09/27/16 10:36 Dose: 20 mg Glipizide (Glucotrol) 5 mg PO BID [facility] Last Admin: 09/27/16 10:36 Dose: 5 mg Daptomycin 250 mg/ Sodium (Chloride) 100 mls @ 200 mls/hr IV Q24H [facility] PRN Reason: Protocol Stop: 09/30/16 19:01 Insulin Human Regular (Humulin R Med) 0 units SC ACHS [facility] PRN Reason: Protocol Last Admin: 09/27/16 12:51 Dose: 1 units Losartan Potassium (Cozaar) 50 mg PO DAILY [facility] Last Admin: 09/27/16 10:35 Dose: 50 mg Metformin HCl (Glucophage) 500 mg PO ACBD [facility] Last Admin: 09/27/16 10:35 Dose: 500 mg Mupirocin (Bactroban Ointment) 0 gm TOP BID [facility] Last Admin: 09/27/16 10:35 Dose: 1 applic Oxycodone/Acetaminophen (Percocet 5/325 Mg Tab) 1 tab PO Q4H PRN PRN Reason: Pain, moderate (4-7) Stop: 09/29/16 08:59 Oxycodone/Acetaminophen (Percocet 5/325 Mg Tab) 2 tab PO Q4H PRN PRN Reason: Pain, severe (8-10) Stop: 09/29/16 08:59 Sitagliptin Phosphate (Januvia) 50 mg PO DAILY [facility] Last Admin: 09/27/16 10:36 Dose: 50 mg Warfarin Sodium (Coumadin) 10 mg PO 1800 [facility] PRN Reason: Protocol Last Admin: 09/26/16 17:29 Dose: 10 mg - Labs Labs: 09/25/16 07:00 09/25/16 07:15 PT 13.4 Seconds (9.9-11.8) H 09/25/16 07:15 INR 1.24 (0.93-1.08) H 09/25/16 07:15 Attending/Attestation - Attestation I have personally seen and examined this patient.: Yes I have fully participated in the care of the patient.: Yes I have reviewed all pertinent clinical information, including history, physical exam and plan: Yes
--- NOTE | 2016-09-24 13:28 | PN ---
DATE: 09/24/2016 SUBJECTIVE: The patient is 85 years old, seen and examined, lying in bed, seemed to be comfortable. No chest pain, no shortness of breath, no nausea, vomiting, no diarrhea. PHYSICAL EXAMINATION: VITAL SIGNS: She is afebrile, pulse 80, respirations 20, blood pressure 120/60. LUNGS: Bilateral good airflow, no rhonchi or crackle. HEART: S1, S2 audible. No murmur. ABDOMEN: Soft, nontender, no rebound, no guarding. NEUROLOGIC: She is awake and alert, communicative. Moves all extremities. EXTREMITIES: Her left foot is in the dressing. She has wound culture positive for MRSA. Her ESR is 33. She has an MRI of the foot done that shows bone marrow edema, cortical erosion seen at the distal phalanx of the second suspicious for osteomyel itis, mild soft tissue edema and inflammatory changes, more prominent at the second toe. ASSESSMENT AND PLAN: 1. Left second toe osteomyelitis. 2. Chronic atrial fibrillation. 3. Hypertension. 4. Hyperlipidemia. 5. Chronic atrial fibrillation, on Coumadin, but has been on hold. I will cover her with Lovenox. We will continue local wound care. She is on losartan. She is on daptomycin. She is on glipizide. I will monitor her blood sugar. We will continue her on digoxin and atenolol. Monitor her blood rouse gar and we will reevaluate patient in a.m. Mary Wilkerson MD cc: [phone] TT: 09/24/2016 13:27:30 Confirmation # [id number] Dictation # [id number]
--- NOTE | 2016-09-24 14:13 | CP.PCM.PN ---
Subjective - Date & Time of Evaluation Date of Evaluation: 09/24/16 Time of Evaluation: 09:25 - Subjective Subjective: No acute events overnight, no fevers, not in distress. Objective - Vital Signs/Intake and Output Vital Signs (last 24 hours): Temp Pulse Resp BP Pulse Ox 98.7 F 60 19 145/65 98 09/23/16 16:00 09/23/16 17:13 09/23/16 16:00 09/23/16 17:13 09/23/16 16:00 Intake and Output: 09/24/16 09/24/16 06:59 18:59 Intake Total 620 120 Balance 620 120 - Medications Medications: Current Medications Alprazolam (Xanax) 0.25 mg PO QID [facility] PRN Reason: Protocol Stop: 09/27/16 18:01 Last Admin: 09/23/16 22:28 Dose: 0.25 mg Atenolol (Tenormin) 25 mg PO DAILY [facility] Last Admin: 09/23/16 09:09 Dose: 25 mg Atorvastatin Calcium (Lipitor) 10 mg PO DAILY [facility] Last Admin: 09/23/16 09:08 Dose: 10 mg Digoxin (Lanoxin) 0.25 mg PO DAILY [facility] Last Admin: 09/23/16 09:07 Dose: 0.25 mg Escitalopram Oxalate (Lexapro) 20 mg PO DAILY [facility] Last Admin: 09/23/16 09:07 Dose: 20 mg Glipizide (Glucotrol) 5 mg PO BID [facility] Last Admin: 09/23/16 17:14 Dose: 5 mg Daptomycin 250 mg/ Sodium (Chloride) 100 mls @ 200 mls/hr IV Q24H [facility] PRN Reason: Protocol Stop: 09/27/16 19:01 Last Admin: 09/23/16 22:28 Dose: 200 mls/hr Insulin Human Regular (Humulin R Med) 0 units SC ACHS [facility] PRN Reason: Protocol Last Admin: 09/23/16 21:41 Dose: Not Given Losartan Potassium (Cozaar) 50 mg PO DAILY [facility] Last Admin: 09/23/16 17:13 Dose: 50 mg Metformin HCl (Glucophage) 500 mg PO ACBD [facility] Last Admin: 09/23/16 17:14 Dose: 500 mg Mupirocin (Bactroban Ointment) 0 gm TOP BID [facility] Last Admin: 09/23/16 17:12 Dose: 1 applic Sitagliptin Phosphate (Januvia) 50 mg PO DAILY [facility] Last Admin: 09/23/16 09:06 Dose: 50 mg Warfarin Sodium (Coumadin) 8 mg PO 1800 [facility] PRN Reason: Protocol - Labs Labs: 09/20/16 12:20 09/20/16 12:20 PT 16.4 Seconds (9.9-11.8) H 09/23/16 06:20 INR 1.52 (0.93-1.08) H 09/23/16 06:20 - Constitutional Appears: Non-toxic, No Acute Distress - Head Exam Head Exam: NORMAL INSPECTION - Neck Exam Neck Exam: absent: Lymphadenopathy, Meningismus - Respiratory Exam Respiratory Exam: Decreased Breath Sounds - Cardiovascular Exam Cardiovascular Exam: +S1, +S2 - GI/Abdominal Exam GI & Abdominal Exam: Soft. absent: Tenderness - Extremities Exam Additional comments: left foot with dressings in place Assessment and Plan - Assessment and Plan (Free Text) Plan: Assessment left 2nd toe ulcer with evidence of osteomyelitis on MRI; ulcer growing MRSA history of osteomyelitis of the right foot 2nd toe with associated ulcer, with Methicillin-sensitive Staph aureus S/P amputation Acute renal failure HTN DM history of bronchitis history of peripheral vascular disease history of transient ischemic attack history of CVA arthritis anxiety disorder Plan continue Daptomycin; awaiting surgery scheduled for Will continue to follow clinically
[2016-09-24] MEDS: Enoxaparin 60 mg Syringe SC SCH (14:43)
[2016-09-25] MEDS: Enoxaparin 60 mg Syringe SC SCH ×2 (00:50→13:58)
[2016-09-25 07:39] LABS: ADD MANUAL DIFF? NO
[2016-09-25 07:51] LABS: BASO # 0.04 K/mm3 (0.0-2.0); BASO % 0.5 % (0.0-3.0); EOS # 0.4 (0.0-0.7); EOS % 5.5 % (1.5-5.0); GRAN # 3.79 (1.4-6.5); GRAN % 48.3 % (50.0-68.0); HEMATOCRIT 35.6 % (36.0-48.0); LYMPH # 2.9 (1.2-3.4); LYMPH % 36.4 % (22.0-35.0); MEAN CELL VOLUME 89.4 fL (80.0-105.0); MEAN CORPUSCULAR HEMOGLOBIN 29.6 pg (25.0-35.0); MEAN CORPUSCULAR HGB CONC 33.1 g/dl (31.0-37.0); MEAN PLATELET VOLUME 9.7 fl (7.0-11.0); MONO # 0.7 (0.1-0.6); MONO % 9.3 % (1.0-6.0); PLATELET COUNT 208 10^3/uL (120.0-450.0); RED CELL DISTRIBUTION WIDTH 13.1 % (11.5-14.5); WHITE BLOOD COUNT 7.8 10^3/ul (4.5-11.0)
[2016-09-25 07:52] LABS: INR 1.24 (0.93-1.08)
[2016-09-25 08:20] LABS: ALKALINE PHOSPHATASE 36 U/L (38-133); ALT/SGPT 16 U/L (7-56); AST/SGOT 29 U/L (15-39); BILIRUBIN,TOTAL 0.5 mg/dL (0.2-1.3); BLOOD UREA NITROGEN 27 mg/dL (7-21); CALCIUM 8.8 mg/dL (8.4-10.5); CARBON DIOXIDE 26 mmol/L (21-33); CHLORIDE 101 mmol/L (98-107); GFR AFRICAN-AMERICAN > 60; GLUCOSE,RANDOM 95 mg/dL (70-110); POTASSIUM 4.2 mmol/L (3.6-5.0); SODIUM 138 mmol/L (132-148); TOTAL PROTEIN 7.1 g/dL (5.8-8.3)
--- NOTE | 2016-09-25 08:30 | CP.PCM.PN ---
<Arlyn Rigginsa - Last Filed: 09/25/16 08:28> Subjective - Date & Time of Evaluation Date of Evaluation: 09/25/16 Time of Evaluation: 08:28 - Subjective Subjective: 85 y/o female seen at bedside with attending Dr. Mota, for left 2nd toe ulceration at the distal aspect. Patient is resting comfortably, in NAD and AAOx3. Patient denies any pain in her foot and denies any pedal complaints at this time. patient's dressing remains clean,dry,intact to left foot. She denies n/f/v/c/d/sob. Objective - Vital Signs/Intake and Output Vital Signs (last 24 hours): Temp Pulse Resp BP Pulse Ox 98 F 62 19 135/60 97 09/24/16 16:00 09/24/16 16:00 09/24/16 16:00 09/24/16 16:00 09/24/16 16:00 Intake and Output: 09/25/16 09/25/16 06:59 18:59 Intake Total 300 0 Balance 300 0 - Medications Medications: Current Medications Alprazolam (Xanax) 0.25 mg PO QID [facility] PRN Reason: Protocol Stop: 09/27/16 18:01 Last Admin: 09/24/16 21:27 Dose: 0.25 mg Atenolol (Tenormin) 25 mg PO DAILY [facility] Last Admin: 09/24/16 10:44 Dose: 25 mg Atorvastatin Calcium (Lipitor) 10 mg PO DAILY [facility] Last Admin: 09/24/16 10:44 Dose: 10 mg Digoxin (Lanoxin) 0.25 mg PO DAILY [facility] Last Admin: 09/24/16 10:44 Dose: 0.25 mg Enoxaparin Sodium (Lovenox) 60 mg SC Q12H [facility] PRN Reason: Protocol Last Admin: 09/25/16 00:50 Dose: 60 mg Escitalopram Oxalate (Lexapro) 20 mg PO DAILY [facility] Last Admin: 09/24/16 10:44 Dose: 20 mg Glipizide (Glucotrol) 5 mg PO BID [facility] Last Admin: 09/24/16 18:00 Dose: 5 mg Daptomycin 250 mg/ Sodium (Chloride) 100 mls @ 200 mls/hr IV Q24H [facility] PRN Reason: Protocol Stop: 09/27/16 19:01 Last Admin: 09/23/16 22:28 Dose: 200 mls/hr Insulin Human Regular (Humulin R Med) 0 units SC ACHS [facility] PRN Reason: Protocol Last Admin: 09/24/16 21:46 Dose: Not Given Losartan Potassium (Cozaar) 50 mg PO DAILY [facility] Last Admin: 09/24/16 10:43 Dose: 50 mg Metformin HCl (Glucophage) 500 mg PO ACBD [facility] Last Admin: 09/24/16 18:00 Dose: 500 mg Mupirocin (Bactroban Ointment) 0 gm TOP BID [facility] Last Admin: 09/24/16 17:50 Dose: 1 applic Sitagliptin Phosphate (Januvia) 50 mg PO DAILY [facility] Last Admin: 09/24/16 10:44 Dose: 50 mg - Labs Labs: 09/25/16 07:00 09/25/16 07:15 PT 13.4 Seconds (9.9-11.8) H 09/25/16 07:15 INR 1.24 (0.93-1.08) H 09/25/16 07:15 - Constitutional Appears: Well, Non-toxic, No Acute Distress - Extremities Exam Additional comments: O: Vasc: nonpalpable DP or PT pulses bilaterally, absent pedal hair growth, lower extremity skin shiny and discolored, CFT < 5 sec to all digits neuro: grossly diminished derm; full thickness ulceration at the distal aspect of left 2nd digit- base is granular with hyperkeratotic border, serous drainage noted, no pus, no probe to bone, no undermining, no ascending cellulitis ortho: no pain on palpation to 2nd digit of left foot - Neurological Exam Neurological Exam: Alert, Awake, Oriented x3 - Psychiatric Exam Psychiatric exam: Normal Affect, Normal Mood Assessment and Plan - Assessment and Plan (Free Text) Assessment: 85 y/o female seen at bedside for left 2nd digit ulceration secondary to diabetes Plan: patient evaluated and chart reviewed discussed in detail with attending Dr. Mota labs and vitals reviewed MRI shows of left foot: cortical erosion and bone marrow edema of distal phalanx of 2nd digit consistent with OM patient to OR tomorrow, 09/26/16 @ 4pm for left 2nd digit distal phalanx amputation continue to hold coumadin for pre-op management for OR continue IV abx as per ID patient NPO after midnight wound cx = MRSA applied DSD to left foot podiatry will continue to follow while patient remains in house <Janelle Mota - Last Filed: 09/27/16 14:53> Objective - Vital Signs/Intake and Output Vital Signs (last 24 hours): Temp Pulse Resp BP Pulse Ox 98.1 F 63 20 141/60 97 09/27/16 06:00 09/27/16 10:37 09/27/16 06:00 09/27/16 10:37 09/27/16 06:00 Intake and Output: 09/27/16 09/27/16 06:59 18:59 Intake Total 540 800 Output Total 400 Balance 540 400 - Medications Medications: Current Medications Acetaminophen (Tylenol 325mg Tab) 650 mg PO Q6H PRN PRN Reason: Fever >100.4 F Last Admin: 09/25/16 19:57 Dose: 650 mg Acetaminophen (Tylenol 325mg Tab) 650 mg PO Q4H [facility] PRN Reason: Pain, Mild (1-3) Alprazolam (Xanax) 0.25 mg PO QID [facility] PRN Reason: Protocol Stop: 09/27/16 18:01 Last Admin: 09/27/16 10:37 Dose: 0.25 mg Atenolol (Tenormin) 25 mg PO DAILY [facility] Last Admin: 09/27/16 10:37 Dose: 25 mg Atorvastatin Calcium (Lipitor) 10 mg PO DAILY [facility] Last Admin: 09/27/16 10:36 Dose: 10 mg Digoxin (Lanoxin) 0.25 mg PO DAILY [facility] Last Admin: 09/27/16 10:36 Dose: 0.25 mg Enoxaparin Sodium (Lovenox) 60 mg SC 0600,1800 [facility] PRN Reason: Protocol Last Admin: 09/27/16 06:12 Dose: 60 mg Escitalopram Oxalate (Lexapro) 20 mg PO DAILY [facility] Last Admin: 09/27/16 10:36 Dose: 20 mg Glipizide (Glucotrol) 5 mg PO BID [facility] Last Admin: 09/27/16 10:36 Dose: 5 mg Daptomycin 250 mg/ Sodium (Chloride) 100 mls @ 200 mls/hr IV Q24H [facility] PRN Reason: Protocol Stop: 09/30/16 19:01 Insulin Human Regular (Humulin R Med) 0 units SC ACHS [facility] PRN Reason: Protocol Last Admin: 09/27/16 12:51 Dose: 1 units Losartan Potassium (Cozaar) 50 mg PO DAILY [facility] Last Admin: 09/27/16 10:35 Dose: 50 mg Metformin HCl (Glucophage) 500 mg PO ACBD [facility] Last Admin: 09/27/16 10:35 Dose: 500 mg Mupirocin (Bactroban Ointment) 0 gm TOP BID [facility] Last Admin: 09/27/16 10:35 Dose: 1 applic Oxycodone/Acetaminophen (Percocet 5/325 Mg Tab) 1 tab PO Q4H [facility] PRN Reason: Pain, moderate (4-7) Stop: 09/29/16 08:59 Oxycodone/Acetaminophen (Percocet 5/325 Mg Tab) 2 tab PO Q4H PRN PRN Reason: Pain, severe (8-10) Stop: 09/29/16 08:59 Sitagliptin Phosphate (Januvia) 50 mg PO DAILY [facility] Last Admin: 09/27/16 10:36 Dose: 50 mg Warfarin Sodium (Coumadin) 10 mg PO 1800 [facility] PRN Reason: Protocol Last Admin: 09/26/16 17:29 Dose: 10 mg - Labs Labs: 09/25/16 07:00 09/25/16 07:15 PT 13.4 Seconds (9.9-11.8) H 09/25/16 07:15 INR 1.24 (0.93-1.08) H 09/25/16 07:15 Attending/Attestation - Attestation I have personally seen and examined this patient.: Yes I have fully participated in the care of the patient.: Yes I have reviewed all pertinent clinical information, including history, physical exam and plan: Yes
[2016-09-25] MEDS: Insulin Reg-MEDIUM-Coverage SC SCH ×4 (08:37→22:10)
[2016-09-25] MEDS: Digoxin 250 mcg (0.25 mg) Tab PO SCH (10:34)
--- NOTE | 2016-09-25 11:39 | CP.PCM.PN ---
Subjective - Date & Time of Evaluation Date of Evaluation: 09/25/16 Time of Evaluation: 10:00 - Subjective Subjective: Comfortable in bed, not in distress, no fevers, no pain in her left foot currently. Objective - Vital Signs/Intake and Output Vital Signs (last 24 hours): Temp Pulse Resp BP Pulse Ox 98.7 F 67 18 145/49 L 95 09/25/16 08:35 09/25/16 10:34 09/25/16 08:35 09/25/16 10:34 09/25/16 08:35 Intake and Output: 09/25/16 09/25/16 06:59 18:59 Intake Total 300 0 Balance 300 0 - Medications Medications: Current Medications Alprazolam (Xanax) 0.25 mg PO QID [facility] PRN Reason: Protocol Stop: 09/27/16 18:01 Last Admin: 09/25/16 10:34 Dose: 0.25 mg Atenolol (Tenormin) 25 mg PO DAILY [facility] Last Admin: 09/25/16 10:33 Dose: 25 mg Atorvastatin Calcium (Lipitor) 10 mg PO DAILY [facility] Last Admin: 09/25/16 10:34 Dose: 10 mg Digoxin (Lanoxin) 0.25 mg PO DAILY [facility] Last Admin: 09/25/16 10:34 Dose: 0.25 mg Enoxaparin Sodium (Lovenox) 60 mg SC Q12H [facility] PRN Reason: Protocol Last Admin: 09/25/16 00:50 Dose: 60 mg Escitalopram Oxalate (Lexapro) 20 mg PO DAILY [facility] Last Admin: 09/25/16 10:34 Dose: 20 mg Glipizide (Glucotrol) 5 mg PO BID [facility] Last Admin: 09/25/16 09:00 Dose: 5 mg Daptomycin 250 mg/ Sodium (Chloride) 100 mls @ 200 mls/hr IV Q24H [facility] PRN Reason: Protocol Stop: 09/27/16 19:01 Last Admin: 09/23/16 22:28 Dose: 200 mls/hr Insulin Human Regular (Humulin R Med) 0 units SC ACHS [facility] PRN Reason: Protocol Last Admin: 09/25/16 08:37 Dose: Not Given Losartan Potassium (Cozaar) 50 mg PO DAILY [facility] Last Admin: 09/25/16 10:34 Dose: 50 mg Metformin HCl (Glucophage) 500 mg PO ACBD [facility] Last Admin: 09/25/16 08:58 Dose: 500 mg Mupirocin (Bactroban Ointment) 0 gm TOP BID [facility] Last Admin: 09/25/16 10:42 Dose: 1 applic Sitagliptin Phosphate (Januvia) 50 mg PO DAILY [facility] Last Admin: 09/25/16 10:34 Dose: 50 mg - Labs Labs: 09/25/16 07:00 09/25/16 07:15 PT 13.4 Seconds (9.9-11.8) H 09/25/16 07:15 INR 1.24 (0.93-1.08) H 09/25/16 07:15 - Constitutional Appears: Non-toxic, No Acute Distress - Head Exam Head Exam: NORMAL INSPECTION - ENT Exam ENT Exam: Mucous Membranes Moist - Neck Exam Neck Exam: absent: Lymphadenopathy, Meningismus - Respiratory Exam Respiratory Exam: Decreased Breath Sounds - Cardiovascular Exam Cardiovascular Exam: +S1, +S2 - GI/Abdominal Exam GI & Abdominal Exam: Soft. absent: Tenderness - Extremities Exam Additional comments: left foot with dry dressings in place Assessment and Plan - Assessment and Plan (Free Text) Plan: Assessment left 2nd toe ulcer with evidence of osteomyelitis on MRI; ulcer growing MRSA history of osteomyelitis of the right foot 2nd toe with associated ulcer, with Methicillin-sensitive Staph aureus S/P amputation Acute renal failure HTN DM history of bronchitis history of peripheral vascular disease history of transient ischemic attack history of CVA arthritis anxiety disorder Plan continue Daptomycin; awaiting surgery scheduled for tomorrow; will repeat CPK on 09/27/2016 Will continue to follow clinically
--- NOTE | 2016-09-25 19:05 | CARD ---
APPROVED REPORT EXAM: Two-dimensional and M-mode echocardiogram with Doppler and color Doppler. INDICATION Atrial Fibrillation SEPTIC SHOCK 2D DIMENSIONS IVSd1.3 (0.7-1.1cm)LVDd4.3 (3.9-5.9cm) PWd1.3 (0.7-1.1cm)LVDs2.9 (2.5-4.0cm) FS (%) 33.1 %LVEF (%)62.0 (>50%) M-Mode DIMENSIONS Aortic Root3.70 (2.2-3.7cm)Aortic Cusp Exc.1.80 (1.5-2.0cm) Aortic Valve AoV Peak Lpsqulpy840.0cm/Manohar Peak GR.13mmHgLVOT Peak Sgrkrjby532.0cm/s LVOT VTI27.70cmAI P 1/2 [id number] Mitral Valve MV E Vlizmjpd29.1cm/sMV A Vjakyzwf397.0cm/sE/A ratio0.6 TDI Lateral E' Peak V5.36cm/sMedial E' Peak V4.09cm/sE/Lateral E'12.9 E/Medial E'16.9 Pulmonary Valve PV Peak Eghheumb48.3cm/sPV Peak Grad.2mmHg Tricuspid Valve TR Peak Twvhsilt528yw/sRAP [id number] Peak Gr.28mmHg [id number] LEFT VENTRICLE The left ventricle is normal size. There is mild concentric left ventricular hypertrophy. The left ventricular ejection fraction is within the normal range. Transmitral Doppler flow pattern is Grade I-abnormal relaxation pattern. RIGHT VENTRICLE The right ventricle is normal size. There is normal right ventricular wall thickness. The right ventricular systolic function is normal. ATRIA The left atrium size is normal. The right atrium size is normal. AORTIC VALVE The aortic valve is moderately sclerotic. There is moderate aortic regurgitation. MITRAL VALVE Mitral annular calcification is moderate to severe. TRICUSPID VALVE There is mild tricuspid regurgitation. There is mild pulmonary hypertension. GREAT VESSELS The IVC is normal in size and collapses >50% with inspiration. <Conclusion> The left ventricle is normal size. There is mild concentric left ventricular hypertrophy. The left ventricular ejection fraction is within the normal range. Transmitral Doppler flow pattern is Grade I-abnormal relaxation pattern. The aortic valve is moderately sclerotic. There is moderate aortic regurgitation. There is mild tricuspid regurgitation. There is mild pulmonary hypertension.
--- NOTE | 2016-09-26 06:45 | PN ---
DATE: 09/25/2016 SUBJECTIVE: The patient is an 85-year-old, seen and examined. Doing well. Sitting in chair, comfor table. PHYSICAL EXAMINATION: VITAL SIGNS: She is afebrile, pulse 64, respirations 18, blood pressure 145/49. LUNGS: Bilateral fair airflow, no rhonchi or crackle. HEART: S1, S2 audible. No murmur. ABDOMEN: Soft, nontender, no rebound, no guarding. NEUROLOGIC: The patient is awake and alert, communicative. Her left second toe is wrapped in a dres sing done by adult education instructor. LABORATORY DATA: WBC 7.8, hemoglobin 11.8, hematocrit 35.6, platelets of 208. PT 13.4, INR 1.24. Chemistry: Sodium 138, potassium 4.2, chloride 101, CO2 26, BUN 27, creatinine 0.9, blood sugar 102. ASSESSMENT: 1. Left second toe osteomyelitis. 2. Hypertension. 3. Chronic atrial fibrillation. 4. Noninsulin-dependent diabetes. 5. Hyperlipidemia. PLAN: The patient had echocardiogram done, results are pending. Dr. De La Cruz has been consulted for medical clearance. The patient is off of Coumadin. She is ready for a second toe amputation tomorr ow. Currently, she is on daptomycin. I will continue to monitor her blood sugar. She will receive her second dose of Lovenox today. Will hold it for tomorrow morning. Will restart Coumadin after rouse rgery tomorrow. Discussed with patient. Discussed with Dr. Mota. Mary Wilkerson MD cc: [phone] TT: 09/26/2016 06:44:38 Confirmation # [id number] Dictation # [id number] mn
[2016-09-26] MEDS ORDERED: Lidocaine 2% Inj (20ml) ONE (07:21)
[2016-09-26] MEDS ORDERED: HYDROmorphone 0.5 mg/0.5 ml ISec IVP PRN (08:08)
[2016-09-26] MEDS ORDERED: Midazolam 2 MG/2 ML VIAL ONE (08:14)
[2016-09-26] MEDS ORDERED: Lactated Ringer's 1,000 ML IV SCH (08:15)
[2016-09-26] MEDS: Insulin Reg-MEDIUM-Coverage SC SCH ×4 (08:20→22:15)
[2016-09-26] MEDS ORDERED: Propofol 10 mg/ml Inj (20 ML) ONE (08:23)
[2016-09-26] MEDS ORDERED: Lidocaine 1% Inj (20ml) ONE (08:24)
[2016-09-26] MEDS ORDERED: Oxycodone/Acetaminophen 5/325 mg Tab PO PRN ×2 (08:58)
--- NOTE | 2016-09-26 08:58 | PCM.SURG1 ---
Surgeon's Initial Post Op Note - Surgeon's Notes Surgeon: Dr. Mota Community Engagement Coordinator: Dr. Riggins PGY-1 Type of Anesthesia: IV Sedation, Local Anesthesia Administered By: Dr. Reddy Pre-Operative Diagnosis: left partial second digit osteomyelitis Operative Findings: see dictation. 8mL 2% lidocaine plain. 3-0 vicryl. 3-0 nylon Post-Operative Diagnosis: same as preop Operation Performed: left foot 2nd digit partial amputation Specimen/Specimens Removed: bone Estimated Blood Loss: EBL {In ML}: 5 Blood Products Given: N/A Drains Used: No Drains Post-Op Condition: Good Date of Surgery/Procedure: 09/26/16 Time of Surgery/Procedure: 08:00
[2016-09-26] MEDS: Digoxin 250 mcg (0.25 mg) Tab PO SCH (10:52)
--- NOTE | 2016-09-26 11:32 | OP ---
PROCEDURE DATE: 09/26/2016 SURGEON: Janelle Mota DPM. MENTAL RETARDATION AIDE: Loreto Jovel, PGY1. ANESTHESIOLOGIST: Dr. Reddy. ANESTHESIA: IV sedation with local. PREOPERATIVE DIAGNOSIS: Left foot second partial digit osteomyelitis. POSTOPERATIVE DIAGNOSIS: Left foot second partial digit osteomyelitis. NAME OF PROCEDURE: Left foot second digit partial amputation. INDICATIONS: The patient is an 85-year-old female with the above diagnoses. The patient has exhausted all conservative treatment at this time and now requires surgical intervention. The patient signed the consent after careful explanation of risks, benefits, complications, and alternatives for surgical procedure. No guarantees were given nor implied. N.p.o. status was confirmed prior to taking the patient to the OR. PREPARATION: The patient was brought into the operating room and placed on the operating room table in the supine position. Timeout was performed for identification of the correct patient and procedure. After induction of IV sedation, the patient received a total of 8 mL of 2% lidocaine plain in a local block type fashion to the left second digit. The left foot was then prepped and draped in normal sterile manner, and the procedure began. No tourniquet was used during the procedure. Attention was then drawn to the distal aspect of the second digit of the left foot where a circumferential incision using a #15 blade was made down to the level of the distal interphalangeal joint. Incision was extended through subcutaneous tissue, and the distal phalanx was disarticulated at the level of the joint. Next, using a #15 blade, the head of the middle phalanx was resected of all of its ligaments and attachments. Next, using a bone clamp, the distal aspect of the middle phalanx was resected and sent to pathology. At this time, the wound was then copiously flushed with sterile saline. At this time, the subcutaneous tissue was reapproximated using 3-0 Vicryl, and skin layers were then reapproximated using 3-0 nylon in a simple suture technique. The left foot was then dressed with Adaptic, 4 x 4 gauze, Stephanie. Immediate capillary refill time was noted to the surgical site. POSTOPERATIVE CONDITION: The patient tolerated the anesthesia and procedure well and was escorted to the recovery room with vital signs stable and neurovascularly intact to the left foot. The patient is to remain weightbearing as tolerated to the left lower extremity. Podiatry will continue to follow the patient while in-house. The patient will follow up with Dr. Mota upon discharge. LORETO JOVEL DPM Janelle Mota DPM cc: [id number] TT: 09/26/2016 11:14:35 jn MTDD
--- NOTE | 2016-09-26 11:42 | CON ---
DATE: 09/26/2016 INDICATIONS: Preoperative evaluation. HISTORY OF PRESENT ILLNESS: This is an 85-year-old woman admitted with osteomyelitis of the left second toe, who is planning to undergo a partial amputation of that toe later today. She was admitted initially on the with cellulitis and found to have osteomyelitis. This morning, she is comfortable without symptoms. There is no chest pain, shortness of breath, orthopnea, PND, syncope, presyncope, lightheadedness, dizziness, vertigo, palpitations, edema, fever, chills, cough, sputum production , hemoptysis, abdominal pain, nausea, vomiting, diarrhea, constipation, or melena. PAST MEDICAL HISTORY: Complex I have reviewed the hospital records. She has known coronary artery disease. She underwent cardiac catheterization in 2016, apparently an intervention was performed, although I do not have the records. She has a history of hypertension, cardiomyopathy, although on her last echocardiogram, LV function was normal. She also demonstrated moderate aortic regurgitation, mild tricuspid regurgitation and mild pulmonary hypertension. There is a history of diabetes, chronic atrial fibrillation, cerebrovascular disease, DVT and TIA. There is no history of rheumatic fever, angina or gout. MEDICATIONS: At this time include losartan, daptomycin, Dilaudid, glipizide, insulin, Januvia, digoxin, Lexapro, Lipitor, oxycodone, atenolol, Percocet, Xanax, metformin. ALLERGIES: PENICILLIN, VANCOMYCIN, FLU VACCINE. SOCIAL HISTORY: She does not smoke. She does not drink alcohol significantly. She is ambulatory. FAMILY HISTORY: Noncontributory. REVIEW OF SYSTEMS: Ten point review of systems otherwise unremarkable except as noted above. PHYSICAL EXAMINATION: GENERAL: She is a well-developed woman sitting on her bed in no acute distress. VITAL SIGNS: Her pulse is 64. She is afebrile. Blood pressure 154/67, respirations 19-20, O2 sat 97% on nasal cannula and room air. HEENT: Reveals no neck vein distention, thyromegaly or carotid bruits. Mucous membranes are moist. Conjunctivae are pink. NECK: Supple. LUNGS: Rudd clear. HEART: Revealed normal first and second heart sounds. There is a soft decrescendo diastolic murmur along the left sternal border. ABDOMEN: Soft, bowel sounds are present. No mass, organomegaly, tenderness, rebound, or guarding. No CVA tenderness. There is no palpable abdominal aortic aneurysm. EXTREMITIES: Revealed no cyanosis, clubbing, or edema. NEUROLOGIC: She is awake, alert, oriented and intact. SKIN: Warm and dry. No rash or cellulitis. PSYCHIATRIC: There is a bandage on the left second toe. LABORATORY AND IMAGING: A chest x-ray on 09/20, a portable study, revealed COPD , no acute findings. An EKG on the revealed sinus rhythm with first degree heart block, left ventricular hypertrophy, left axis deviation, old inferior wall myocardial infarction, anterior septal HI old. The foot MRI reveals osteomyelitis, distal phalanx, the second toe left foot. Hemoglobin 11.8, hematocrit 35.6, white count normal, platelet count normal. PT 13.4, INR 1.24. Electrolytes, BUN, creatinine, blood sugar unremarkable. LFTs unremarkable. CK 51, C-reactive protein 0.91. IMPRESSION: The patient is an 85-year-old woman with cellulitis and osteomyelitis, left second toe, who is planning to undergo elective amputation of the distal phalanx of the left second toe by Dr. Mota later today. She has a history of coronary artery disease, coronary intervention. Her cardiac status has been stable recently. There has been no chest pain and no shortness of breath or other cardiac symptoms. She has a history of paroxysmal atrial fibrillation, stroke, hypertension, diabetes, aortic insufficiency. At this time, I see no reason why she cannot proceed with the planned surgical procedure under local anesthesia with IV conscious sedation. She should be considered a mildly increased cardiac risk. Postoperatively warfarin can be resumed and we will continue her usual cardiac medications. Gerber Lake MD cc: [id number] TT: 09/26/2016 11:41:48 Confirmation # [id number] Dictation # [id number] diony THOMPSON
[2016-09-26] MEDS ORDERED: Enoxaparin 60 mg Syringe SC SCH (13:00)
--- NOTE | 2016-09-26 13:20 | PN ---
DATE: 09/26/2016 SUBJECTIVE: The patient is an 85-year-old, seen and examined, lying in bed, seems to be comfortable, complained of generalized weakness, otherwise doing well. PHYSICAL EXAMINATION: VITAL SIGNS: She is afebrile, pulse 63, respirations 16, and blood pressure 151/71. LUNGS: Bilateral fair airflow, no rhonchi or crackle. HEART: S1, S2 audible. No murmur. ABDOMEN: Soft, nontender, no rebound, no guarding. NEUROLOGIC: She is awake and alert, communicative. Moves all extremities. Complained of generalize d weakness. EXTREMITIES: Left foot is in a dressing. She has the second toe amputated on the left foot. LABORATORY EXAMINATION: WBC 7.8, hemoglobin 11.8, hematocrit 35.6, platelet of 208. Her blood sugar is 128. ASSESSMENT: 1. Status post left foot second toe amputation. 2. Hypertension. 3. Non-insulin dependent diabetes. 4. Paroxysmal atrial fibrillation. 5. Left second toe osteomyelitis, status post amputation. PLAN: We will restart the patient on Coumadin. We will continue her on Lovenox and once she is ther apeutic, we will discontinue Lovenox. We will monitor her blood sugar. Analgesic as needed. TCU ev aluation has been requested. Once she is accepted, she will be transferred to [facility]. Mary Wilkerson MD cc: [id number] TT: 09/26/2016 13:20:19 Confirmation # [id number] Dictation # [id number] tn
--- NOTE | 2016-09-26 14:00 | RAD ---
PROCEDURE: Left Foot Radiographs. HISTORY: s/p left foot surgery COMPARISON: Comparison is made to the previous study dated 09/14/2016 FINDINGS: BONES: Patient status post amputation through the mid shaft of middle phalanx 2nd toe. Otherwise no significant interval change in the osseous structures. JOINTS: Arthritic degenerative changes. SOFT TISSUES: Normal. OTHER FINDINGS: None. IMPRESSION: Status post amputation through the middle phalanx of the 2nd toe. Otherwise no significant interval change.
[2016-09-27] MEDS: Enoxaparin 60 mg Syringe SC SCH ×2 (06:12→18:18)
[2016-09-27] MEDS: Insulin Reg-MEDIUM-Coverage SC SCH ×4 (09:27→22:08)
[2016-09-27] MEDS: Digoxin 250 mcg (0.25 mg) Tab PO SCH (10:36)
--- NOTE | 2016-09-27 13:32 | CP.PCM.PN ---
<Arlyn Rigginsa - Last Filed: 09/27/16 13:29> Subjective - Date & Time of Evaluation Date of Evaluation: 09/27/16 Time of Evaluation: 13:29 - Subjective Subjective: 85 y/o female seen at bedside 1 day s/p left 2nd partial digit amputation. Patient is resting comfortably, in NAD and AAOx3. Patient denies any pain in her foot and denies any pedal complaints at this time. patient's dressing remains clean,dry,intact to left foot. She denies n/f/v/c/d/sob. Objective - Vital Signs/Intake and Output Vital Signs (last 24 hours): Temp Pulse Resp BP Pulse Ox 98.1 F 63 20 141/60 97 09/27/16 06:00 09/27/16 10:37 09/27/16 06:00 09/27/16 10:37 09/27/16 06:00 Intake and Output: 09/27/16 09/27/16 06:59 18:59 Intake Total 540 Balance 540 - Medications Medications: Current Medications Acetaminophen (Tylenol 325mg Tab) 650 mg PO Q6H PRN PRN Reason: Fever >100.4 F Last Admin: 09/25/16 19:57 Dose: 650 mg Acetaminophen (Tylenol 325mg Tab) 650 mg PO Q4H PRN PRN Reason: Pain, Mild (1-3) Alprazolam (Xanax) 0.25 mg PO QID [facility] PRN Reason: Protocol Stop: 09/27/16 18:01 Last Admin: 09/27/16 10:37 Dose: 0.25 mg Atenolol (Tenormin) 25 mg PO DAILY [facility] Last Admin: 09/27/16 10:37 Dose: 25 mg Atorvastatin Calcium (Lipitor) 10 mg PO DAILY [facility] Last Admin: 09/27/16 10:36 Dose: 10 mg Digoxin (Lanoxin) 0.25 mg PO DAILY [facility] Last Admin: 09/27/16 10:36 Dose: 0.25 mg Enoxaparin Sodium (Lovenox) 60 mg SC 0600,1800 [facility] PRN Reason: Protocol Last Admin: 09/27/16 06:12 Dose: 60 mg Escitalopram Oxalate (Lexapro) 20 mg PO DAILY [facility] Last Admin: 09/27/16 10:36 Dose: 20 mg Glipizide (Glucotrol) 5 mg PO BID [facility] Last Admin: 09/27/16 10:36 Dose: 5 mg Daptomycin 250 mg/ Sodium (Chloride) 100 mls @ 200 mls/hr IV Q24H [facility] PRN Reason: Protocol Stop: 09/27/16 19:01 Last Admin: 09/26/16 18:45 Dose: 200 mls/hr Insulin Human Regular (Humulin R Med) 0 units SC ACHS [facility] PRN Reason: Protocol Last Admin: 09/27/16 12:51 Dose: 1 units Losartan Potassium (Cozaar) 50 mg PO DAILY [facility] Last Admin: 09/27/16 10:35 Dose: 50 mg Metformin HCl (Glucophage) 500 mg PO ACBD [facility] Last Admin: 09/27/16 10:35 Dose: 500 mg Mupirocin (Bactroban Ointment) 0 gm TOP BID [facility] Last Admin: 09/27/16 10:35 Dose: 1 applic Oxycodone/Acetaminophen (Percocet 5/325 Mg Tab) 1 tab PO Q4H PRN PRN Reason: Pain, moderate (4-7) Stop: 09/29/16 08:59 Oxycodone/Acetaminophen (Percocet 5/325 Mg Tab) 2 tab PO Q4H PRN PRN Reason: Pain, severe (8-10) Stop: 09/29/16 08:59 Sitagliptin Phosphate (Januvia) 50 mg PO DAILY [facility] Last Admin: 09/27/16 10:36 Dose: 50 mg Warfarin Sodium (Coumadin) 10 mg PO 1800 [facility] PRN Reason: Protocol Last Admin: 09/26/16 17:29 Dose: 10 mg - Labs Labs: 09/25/16 07:00 09/25/16 07:15 PT 13.4 Seconds (9.9-11.8) H 09/25/16 07:15 INR 1.24 (0.93-1.08) H 09/25/16 07:15 - Constitutional Appears: Well, Non-toxic, No Acute Distress - Extremities Exam Additional comments: O: Vasc: nonpalpable DP or PT pulses bilaterally, absent pedal hair growth, lower extremity skin shiny and discolored, CFT < 5 sec to all digits neuro: grossly diminished derm; surgical incision site well coapted, no active bleeding, sutures intact, no ascending cellulitlis, mild swelling noted, no purulence, no dehiscence ortho: no pain on palpation to 2nd digit of left foot - Neurological Exam Neurological Exam: Alert, Awake, Oriented x3 - Psychiatric Exam Psychiatric exam: Normal Affect, Normal Mood Assessment and Plan - Assessment and Plan (Free Text) Assessment: 85 y/o female seen at bedside 1 day s/p left 2nd digit partial amputation Plan: patient evaluated and chart reviewed discussed in detail with attending Dr. Coronado labs and vitals reviewed continue IV abx as per ID applied betadine, adaptic, DSD, kerlix to left foot podiatry will continue to follow while patient remains in house <Rajiv Coronado - Last Filed: 09/28/16 07:27> Objective - Vital Signs/Intake and Output Vital Signs (last 24 hours): Temp Pulse Resp BP Pulse Ox 98.0 F 59 L 20 140/64 95 09/27/16 16:00 09/27/16 16:00 09/27/16 16:00 09/27/16 16:00 09/27/16 16:00 Intake and Output: 09/28/16 09/28/16 06:59 18:59 Intake Total 340 Balance 340 - Medications Medications: Current Medications Acetaminophen (Tylenol 325mg Tab) 650 mg PO Q6H PRN PRN Reason: Fever >100.4 F Last Admin: 09/25/16 19:57 Dose: 650 mg Acetaminophen (Tylenol 325mg Tab) 650 mg PO Q4H PRN PRN Reason: Pain, Mild (1-3) Atenolol (Tenormin) 25 mg PO DAILY [facility] Last Admin: 09/27/16 10:37 Dose: 25 mg Atorvastatin Calcium (Lipitor) 10 mg PO DAILY [facility] Last Admin: 09/27/16 10:36 Dose: 10 mg Digoxin (Lanoxin) 0.25 mg PO DAILY [facility] Last Admin: 09/27/16 10:36 Dose: 0.25 mg Enoxaparin Sodium (Lovenox) 60 mg SC 0600,1800 [facility] PRN Reason: Protocol Last Admin: 09/28/16 05:40 Dose: 60 mg Escitalopram Oxalate (Lexapro) 20 mg PO DAILY [facility] Last Admin: 09/27/16 10:36 Dose: 20 mg Glipizide (Glucotrol) 5 mg PO BID [facility] Last Admin: 09/27/16 18:18 Dose: 5 mg Daptomycin 250 mg/ Sodium (Chloride) 100 mls @ 200 mls/hr IV Q24H [facility] PRN Reason: Protocol Stop: 09/30/16 19:01 Last Admin: 09/27/16 14:30 Dose: 200 mls/hr Insulin Human Regular (Humulin R Med) 0 units SC ACHS [facility] PRN Reason: Protocol Last Admin: 09/27/16 22:08 Dose: Not Given Losartan Potassium (Cozaar) 50 mg PO DAILY [facility] Last Admin: 09/27/16 10:35 Dose: 50 mg Metformin HCl (Glucophage) 500 mg PO ACBD [facility] Last Admin: 09/27/16 18:18 Dose: 500 mg Mupirocin (Bactroban Ointment) 0 gm TOP BID [facility] Last Admin: 09/27/16 18:05 Dose: 1 applic Oxycodone/Acetaminophen (Percocet 5/325 Mg Tab) 1 tab PO Q4H PRN PRN Reason: Pain, moderate (4-7) Stop: 09/29/16 08:59 Oxycodone/Acetaminophen (Percocet 5/325 Mg Tab) 2 tab PO Q4H PRN PRN Reason: Pain, severe (8-10) Stop: 09/29/16 08:59 Sitagliptin Phosphate (Januvia) 50 mg PO DAILY [facility] Last Admin: 09/27/16 10:36 Dose: 50 mg Warfarin Sodium (Coumadin) 10 mg PO 1800 [facility] PRN Reason: Protocol Last Admin: 09/27/16 18:18 Dose: 10 mg - Labs Labs: 09/25/16 07:00 09/25/16 07:15 PT 13.4 Seconds (9.9-11.8) H 09/25/16 07:15 INR 1.24 (0.93-1.08) H 09/25/16 07:15 Attending/Attestation - Attestation I have personally seen and examined this patient.: Yes I have fully participated in the care of the patient.: Yes I have reviewed all pertinent clinical information, including history, physical exam and plan: Yes
--- NOTE | 2016-09-27 14:10 | CP.PCM.PN ---
Subjective - Date & Time of Evaluation Date of Evaluation: 09/27/16 Time of Evaluation: 09:40 - Subjective Subjective: Comfortable in bed, not in distress, no fevers overnight, had surgery on her left foot yesterday. Objective - Vital Signs/Intake and Output Vital Signs (last 24 hours): Temp Pulse Resp BP Pulse Ox 98.1 F 63 20 141/60 97 09/27/16 06:00 09/27/16 10:37 09/27/16 06:00 09/27/16 10:37 09/27/16 06:00 Intake and Output: 09/27/16 09/27/16 06:59 18:59 Intake Total 540 Balance 540 - Medications Medications: Current Medications Acetaminophen (Tylenol 325mg Tab) 650 mg PO Q6H PRN PRN Reason: Fever >100.4 F Last Admin: 09/25/16 19:57 Dose: 650 mg Acetaminophen (Tylenol 325mg Tab) 650 mg PO Q4H PRN PRN Reason: Pain, Mild (1-3) Alprazolam (Xanax) 0.25 mg PO QID [facility] PRN Reason: Protocol Stop: 09/27/16 18:01 Last Admin: 09/27/16 10:37 Dose: 0.25 mg Atenolol (Tenormin) 25 mg PO DAILY [facility] Last Admin: 09/27/16 10:37 Dose: 25 mg Atorvastatin Calcium (Lipitor) 10 mg PO DAILY [facility] Last Admin: 09/27/16 10:36 Dose: 10 mg Digoxin (Lanoxin) 0.25 mg PO DAILY [facility] Last Admin: 09/27/16 10:36 Dose: 0.25 mg Enoxaparin Sodium (Lovenox) 60 mg SC 0600,1800 [facility] PRN Reason: Protocol Last Admin: 09/27/16 06:12 Dose: 60 mg Escitalopram Oxalate (Lexapro) 20 mg PO DAILY [facility] Last Admin: 09/27/16 10:36 Dose: 20 mg Glipizide (Glucotrol) 5 mg PO BID [facility] Last Admin: 09/27/16 10:36 Dose: 5 mg Daptomycin 250 mg/ Sodium (Chloride) 100 mls @ 200 mls/hr IV Q24H [facility] PRN Reason: Protocol Stop: 09/27/16 19:01 Last Admin: 09/26/16 18:45 Dose: 200 mls/hr Insulin Human Regular (Humulin R Med) 0 units SC ACHS [facility] PRN Reason: Protocol Last Admin: 09/27/16 12:51 Dose: 1 units Losartan Potassium (Cozaar) 50 mg PO DAILY [facility] Last Admin: 09/27/16 10:35 Dose: 50 mg Metformin HCl (Glucophage) 500 mg PO ACBD [facility] Last Admin: 09/27/16 10:35 Dose: 500 mg Mupirocin (Bactroban Ointment) 0 gm TOP BID [facility] Last Admin: 09/27/16 10:35 Dose: 1 applic Oxycodone/Acetaminophen (Percocet 5/325 Mg Tab) 1 tab PO Q4H PRN PRN Reason: Pain, moderate (4-7) Stop: 09/29/16 08:59 Oxycodone/Acetaminophen (Percocet 5/325 Mg Tab) 2 tab PO Q4H PRN PRN Reason: Pain, severe (8-10) Stop: 09/29/16 08:59 Sitagliptin Phosphate (Januvia) 50 mg PO DAILY [facility] Last Admin: 09/27/16 10:36 Dose: 50 mg Warfarin Sodium (Coumadin) 10 mg PO 1800 [facility] PRN Reason: Protocol Last Admin: 09/26/16 17:29 Dose: 10 mg - Labs Labs: 09/25/16 07:00 09/25/16 07:15 PT 13.4 Seconds (9.9-11.8) H 09/25/16 07:15 INR 1.24 (0.93-1.08) H 09/25/16 07:15 - Constitutional Appears: Non-toxic, No Acute Distress - Head Exam Head Exam: NORMAL INSPECTION - ENT Exam ENT Exam: Mucous Membranes Moist - Neck Exam Neck Exam: absent: Lymphadenopathy, Meningismus - Respiratory Exam Respiratory Exam: Decreased Breath Sounds - Cardiovascular Exam Cardiovascular Exam: +S1, +S2 - GI/Abdominal Exam GI & Abdominal Exam: Soft. absent: Tenderness - Extremities Exam Additional comments: left foot with dry dressings in place Assessment and Plan - Assessment and Plan (Free Text) Plan: Assessment left 2nd toe ulcer with osteomyelitis, growing MRSA, S/P partial amputation of the 2nd toe, POD #1 history of osteomyelitis of the right foot 2nd toe with associated ulcer, with Methicillin-sensitive Staph aureus S/P amputation Acute renal failure HTN DM history of bronchitis history of peripheral vascular disease history of transient ischemic attack history of CVA arthritis anxiety disorder Plan continue Daptomycin; will repeat CPK today; follow up OR cultures and pathology Will continue to follow clinically
--- NOTE | 2016-09-27 14:35 | DS ---
The patient is an 85-year-old, seen and examined, lying in bed, comfortable. States she feels board and tired. Eating and tolerating. Minimal pain to the left foot. PHYSICAL EXAMINATION: VITAL SIGNS: She is afebrile, pulse 63, respirations 20, blood pressure 141/60. LUNGS: Bilateral fair airflow, no rhonchi or crackle. HEART: S1, S2 audible. ABDOMEN: Soft, nontender, no rebound, no guarding. NEUROLOGIC: The patient is awake and alert, communicative. LABORATORY EXAM: There is no PT/INR available today. Her blood sugar is 174. ASSESSMENT: 1. Left second toe osteomyelitis, status post amputation. 2. Chronic atrial fibrillation. 3. Hypertension. 4. Non-insulin dependent diabetes. 5. History of depression. PLAN: The patient is currently on Lovenox 60 mg twice a day. She will be getting Coumadin 10 mg tod ay. We will follow up her CBC, CMP and PT/INR in the morning to adjust her insulin. TCU evaluation has been requested and as soon as she is accepted, patient will be transferred there today. Mary Wilkerson MD cc: [phone] TT: 09/27/2016 14:34:30 betzaida
[2016-09-28] MEDS: Enoxaparin 60 mg Syringe SC SCH ×2 (05:40→17:49)
[2016-09-28 07:10] LABS: ADD MANUAL DIFF? NO
[2016-09-28 07:19] LABS: BASO # 0.05 K/mm3 (0.0-2.0); BASO % 0.6 % (0.0-3.0); EOS # 0.5 (0.0-0.7); EOS % 5.9 % (1.5-5.0); GRAN # 4.26 (1.4-6.5); GRAN % 50.7 % (50.0-68.0); HEMATOCRIT 36.1 % (36.0-48.0); LYMPH # 2.9 (1.2-3.4); LYMPH % 34.8 % (22.0-35.0); MEAN CELL VOLUME 90.3 fL (80.0-105.0); MEAN CORPUSCULAR HEMOGLOBIN 29.5 pg (25.0-35.0); MEAN CORPUSCULAR HGB CONC 32.7 g/dl (31.0-37.0); MEAN PLATELET VOLUME 10.2 fl (7.0-11.0); MONO # 0.7 (0.1-0.6); PLATELET COUNT 232 10^3/uL (120.0-450.0); RED CELL DISTRIBUTION WIDTH 13.2 % (11.5-14.5); WHITE BLOOD COUNT 8.4 10^3/ul (4.5-11.0)
[2016-09-28 07:26] LABS: INR 1.44 (0.93-1.08)
[2016-09-28 07:47] LABS: ALKALINE PHOSPHATASE 40 U/L (38-133); ALT/SGPT 7 U/L (7-56); AST/SGOT 22 U/L (15-39); BILIRUBIN,TOTAL 0.6 mg/dL (0.2-1.3); BLOOD UREA NITROGEN 29 mg/dL (7-21); CALCIUM 9.1 mg/dL (8.4-10.5); CARBON DIOXIDE 23 mmol/L (21-33); CHLORIDE 101 mmol/L (98-107); GFR AFRICAN-AMERICAN > 60; GLUCOSE,RANDOM 80 mg/dL (70-110); POTASSIUM 4.6 mmol/L (3.6-5.0); SODIUM 136 mmol/L (132-148); TOTAL PROTEIN 7.6 g/dL (5.8-8.3)
[2016-09-28] MEDS: Insulin Reg-MEDIUM-Coverage SC SCH ×4 (10:44→22:05)
[2016-09-28] MEDS: Digoxin 250 mcg (0.25 mg) Tab PO SCH (10:52)
--- NOTE | 2016-09-28 12:14 | PN ---
DATE: 09/28/2016 SUBJECTIVE: The patient is an 85-year-old, seen and examined, sitting in chair, comfortable, able to walk, putting more pressure on the heel. PHYSICAL EXAMINATION: VITAL SIGNS: She is afebrile, pulse 59, respirations 20, blood pressure 156/60. LUNGS: Bilateral fair airflow, no rhonchi or crackle. HEART: S1, S2 audible. ABDOMEN: Soft, nontender, no rebound, no guarding. NEUROLOGIC: The patient is awake and alert, able to communicate and ambulate. LABORATORY EXAMINATION: WBC is 8.4, hemoglobin 11.8, hematocrit 36, platelet 232. PT 15.5, INR 1.44 . Chemistry: Sodium 136, potassium 4.6, chloride 101, CO2 23, BUN 29, creatinine 0.9, blood sugar o f 232. ASSESSMENT: 1. Left second toe osteomyelitis, status post amputation. 2. Chronic atrial fibrillation. 3. Non-insulin dependent diabetes. 4. Hypertension. 5. Peripheral vascular disease. 6. History of cerebrovascular accident in the past. 7. Methicillin-resistant Staphylococcus aureus wound infection. PLAN: Currently, the patient is on daptomycin. I will give her 10 mg of Coumadin today. We will co ntinue to overlap with Lovenox and we will recheck PT/INR in a.m. Once she is therapeutic, we will d iscontinue Lovenox. Encourage ambulation as ordered by mechanic chief and we will reevaluate the patient in a.m. Mary Wilkerson MD cc: [phone] TT: 09/28/2016 12:14:14 Confirmation # [id number] Dictation # [id number] tn
--- NOTE | 2016-09-28 12:29 | PN ---
DATE: 09/28/2016 An 85-year-old female seen at bedside, status post left second digit distal amputation. The patient is resting comfortably and has no complaints at this time. She has been afebrile. VITAL SIGNS: Reveal temperature of 98.4, pulse rate of 59, blood pressure 156/60, respiratory rate o f 20. LABORATORY DATA: Reveal a white count of 8.4, hemoglobin 11.8, hematocrit 36.1, platelet count of 23 2. ESR 33. Microbiology report reveals MRSA, taken of the left foot, on September 21. OBJECTIVE: Operative site presents with amputated distal second digit on the left foot, all sutures are intact. There are no signs of dehiscence. There are no signs of drainage. No signs of necrosis . ASSESSMENT: Status post left second distal digit amputation. PLAN: Wound was cleansed with normal sterile saline. Nonadherent sterile gauze was applied along wi th sterile 4 x 4 and a dry sterile dressing. We will keep patient off of her feet and she will requi re a surgical shoe to ambulate. Rajiv Coronado DPM cc: [phone] TT: 09/28/2016 12:29:21 Confirmation # [id number] Dictation # [id number] ln
--- NOTE | 2016-09-28 13:55 | PN ---
DATE: 09/28/2016 The patient seen earlier today in room 375, bed 1. The patient had an uneventful night. No fevers a nd no chills. On exam, temperature 98.4, blood pressure is 150/60, respiratory rate of 18. EXAMINATION OF HENT: Unremarkable. NECK: Supple. LUNGS: Have decreased breath sounds. HEART EXAMINATION: Normal S1, S2. ABDOMINAL EXAMINATION: Soft, nontender. LABORATORY EXAMINATION: Reveals a white count of 8.4, hemoglobin of 11, sed rate of 33. Coagulation is noted. Chemistries reveals a BUN of 29, creatinine of 0.9. Microbiology reveals MRSA from the l eft foot, the blood cultures are no growth, and the TERESA for vanco is less than 0.5. Review of orders reveals the patient to be on daptomycin. The blood cultures are reported to be nega tive. Dr. Coronado's note is reviewed from this morning, and Dr. Wilkerson's note is also reviewed. ASSESSMENT AND PLAN: An 85-year-old female with a left 2nd toe ulcer and osteomyelitis growing MRSA, status post partial amputation 2nd toe, post-procedure day #2, with a history of osteomyelitis of th e right foot 2nd toe, associated ulcer, and on daptomycin in a patient with history of acute renal fa ilure, hypertension, diabetes, bronchitis, peripheral vascular disease, transient ischemic attack, hi story of cerebrovascular accident, arthritis, anxiety disorder. Will follow with you. Dario Mckeon MD cc: [phone] TT: 09/28/2016 13:55:02 Confirmation # [id number] Dictation # [id number] jn
[2016-09-29] MEDS: Enoxaparin 60 mg Syringe SC SCH (05:35)
[2016-09-29 07:31] LABS: INR 1.99 (0.93-1.08)
[2016-09-29] MEDS: Insulin Reg-MEDIUM-Coverage SC SCH ×4 (07:41→21:45)
[2016-09-29] MEDS: Digoxin 250 mcg (0.25 mg) Tab PO SCH (10:01)
--- NOTE | 2016-09-29 11:07 | PN ---
DATE: 09/29/2016 SUBJECTIVE: The patient is in bed in no acute distress, was seen earlier this morning. PHYSICAL EXAMINATION: VITAL SIGNS: Temperature is 98, blood pressure is 160/50, respiratory rate of 15. HEENT: Unremarkable. NECK: Supple. LUNGS: Have decreased breath sounds. HEART: Normal S1, S2. ABDOMEN: Soft, nontender. LABORATORY DATA: Reveals white count is 8.4, hemoglobin of 11, platelets of 232. Coagulation is not ed. Chemistries reveal the BUN of 29, creatinine of 0.9. Microbiology reveals the left foot with me thicillin-resistant Staphylococcus aureus. Review of orders reveals the patient to have daptomycin. progress note from yesterday is reviewed. Pathology report is still pending. ASSESSMENT AND PLAN: An 85-year-old female with a left second toe ulcer and osteomyelitis growing me thicillin-resistant Staphylococcus aureus, status post partial amputation of second toe post-procedur e day #3 with a history of osteomyelitis of the right foot and second toe associated ulcer. Currentl y, on daptomycin, with a history of acute renal failure, hypertension, diabetes, bronchitis, peripher al vascular disease, transient ischemic attack, history of cerebrovascular accident, arthritis, anxie ty. Awaiting for the pathology report and the OR cultures. We will continue daptomycin at this time , pending OR cultures and pathology. Dario Mckeon MD cc: [phone] TT: 09/29/2016 11:07:05 Confirmation # [id number] Dictation # [id number] adalberto
--- NOTE | 2016-09-29 15:01 | PN ---
DATE: 09/29/2016 The patient is an 85-year-old, seen and examined, doing well, ambulating. No fever, no chills, no na usea, vomiting, no diarrhea. PHYSICAL EXAMINATION: VITAL SIGNS: She is afebrile, pulse 50, respirations 18, blood pressure 161/59. LUNGS: Bilateral good airflow, no rhonchi or crackle. HEART: S1, S2 audible. No murmur. ABDOMEN: Soft, nontender, no rebound, no guarding. NEUROLOGIC: She is awake and alert, communicative, ambulates without any assistance. LABORATORY EXAMINATION: PT is 21.5, INR 1.99. Blood sugar is 125. ASSESSMENT: 1. Left second toe osteomyelitis, status post amputation. 2. Chronic atrial fibrillation. 3. Hypertension. 4. Non-insulin dependent diabetes. 5. Chronic kidney disease. 6. History of remote cerebrovascular accident. 7. Generalized osteoarthritis. 8. Methicillin-resistant Staphylococcus aureus foot infection. PLAN: The patient is currently on daptomycin. Her INR is therapeutic. We will give her 6 mg of Cou madin today. Awaiting OR cultures to decide duration and type of antibiotic upon discharge. Once th at decision is made, we will make discharge plan. The patient does not want to go to subacute rehabi litation and because of her insurance reasons, she cannot go to TCU either, so we will make this deci jyotsna in the morning if cultures from OR are available. Mary Wilkerson MD cc: [phone] TT: 09/29/2016 15:01:19 Confirmation # [id number] Dictation # [id number] en
[2016-09-30 07:53] LABS: INR 2.23 (0.93-1.08)
[2016-09-30] MEDS: Insulin Reg-MEDIUM-Coverage SC SCH ×4 (08:53→22:00)
[2016-09-30] MEDS: Digoxin 250 mcg (0.25 mg) Tab PO SCH (09:21)
--- NOTE | 2016-09-30 13:13 | CP.PCM.PN ---
Subjective - Date & Time of Evaluation Date of Evaluation: 09/30/16 Time of Evaluation: 13:10 - Subjective Subjective: 85 y/o female seen at bedside 4 days s/p left 2nd partial digit amputation. Patient is resting comfortably, in NAD and AAOx3. Patient denies any pain in her foot and denies any pedal complaints at this time. patient's dressing remains clean,dry,intact to left foot. She denies n/f/v/c/d/sob. Objective - Vital Signs/Intake and Output Vital Signs (last 24 hours): Temp Pulse Resp BP Pulse Ox 98.3 F 72 17 150/70 94 L 09/30/16 09:00 09/30/16 09:21 09/30/16 09:00 09/30/16 09:21 09/30/16 09:00 Intake and Output: 09/30/16 09/30/16 06:59 18:59 Intake Total 600 Balance 600 - Medications Medications: Current Medications Acetaminophen (Tylenol 325mg Tab) 650 mg PO Q6H PRN PRN Reason: Fever >100.4 F Last Admin: 09/29/16 10:02 Dose: 650 mg Acetaminophen (Tylenol 325mg Tab) 650 mg PO Q4H PRN PRN Reason: Pain, Mild (1-3) Alprazolam (Xanax) 0.25 mg PO QID [facility] PRN Reason: Protocol Stop: 10/05/16 18:01 Last Admin: 09/30/16 09:22 Dose: 0.25 mg Atenolol (Tenormin) 25 mg PO DAILY [facility] Last Admin: 09/30/16 09:21 Dose: 25 mg Atorvastatin Calcium (Lipitor) 10 mg PO DAILY [facility] Last Admin: 09/30/16 09:21 Dose: 10 mg Digoxin (Lanoxin) 0.25 mg PO DAILY [facility] Last Admin: 09/30/16 09:21 Dose: 0.25 mg Escitalopram Oxalate (Lexapro) 20 mg PO DAILY [facility] Last Admin: 09/30/16 09:21 Dose: 20 mg Glipizide (Glucotrol) 5 mg PO BID [facility] Last Admin: 09/30/16 09:21 Dose: 5 mg Daptomycin 250 mg/ Sodium (Chloride) 100 mls @ 200 mls/hr IV Q24H [facility] PRN Reason: Protocol Stop: 09/30/16 19:01 Last Admin: 09/29/16 15:00 Dose: 200 mls/hr Insulin Human Regular (Humulin R Med) 0 units SC ACHS [facility] PRN Reason: Protocol Last Admin: 09/30/16 12:48 Dose: 1 units Losartan Potassium (Cozaar) 50 mg PO DAILY [facility] Last Admin: 09/30/16 09:20 Dose: 50 mg Metformin HCl (Glucophage) 500 mg PO ACBD [facility] Last Admin: 09/30/16 09:20 Dose: 500 mg Mupirocin (Bactroban Ointment) 0 gm TOP BID [facility] 234 [facility] Last Admin: 09/30/16 09:13 Dose: 1 applic Sitagliptin Phosphate (Januvia) 50 mg PO DAILY [facility] 234 [facility] Last Admin: 09/30/16 09:21 Dose: 50 mg Warfarin Sodium (Coumadin) 6 mg PO 1800 [facility] PRN Reason: Protocol Last Admin: 09/29/16 17:38 Dose: 6 mg - Labs Labs: 09/28/16 06:40 09/28/16 06:40 PT 24.1 Seconds (9.9-11.8) H 09/30/16 07:30 INR 2.23 (0.93-1.08) H 09/30/16 07:30 - Constitutional Appears: Well, Non-toxic, No Acute Distress - Extremities Exam Additional comments: Vasc: nonpalpable DP or PT pulses bilaterally, absent pedal hair growth, lower extremity skin shiny and discolored, CFT < 5 sec to all digits neuro: grossly diminished derm; surgical incision site well coapted, no active bleeding, sutures intact, no ascending cellulitlis, mild swelling noted, no purulence, no dehiscence ortho: no pain on palpation to 2nd digit of left foot - Neurological Exam Neurological Exam: Alert, Awake, Oriented x3 - Psychiatric Exam Psychiatric exam: Normal Affect, Normal Mood Assessment and Plan - Assessment and Plan (Free Text) Assessment: 85 y/o female seen at bedside 4 days s/p left 2nd digit partial amputation Plan: patient evaluated and chart reviewed seen at bedside with attending Dr. Mota labs and vitals reviewed continue IV abx as per ID applied DSD to left foot patient instructed to ambulate in surgical shoe podiatry will continue to follow while patient remains in house
--- NOTE | 2016-09-30 13:13 | PN ---
DATE: 09/30/2016 SUBJECTIVE: The patient is an 85-year-old, seen and examined. Doing well. Anxious to go home. No chest pain, no shortness of breath, no nausea, vomiting, no diarrhea. PHYSICAL EXAMINATION: VITAL SIGNS: She is afebrile, pulse 82, respirations 17, blood pressure 150/70. LUNGS: Bilateral fair airflow, no rhonchi or crackle. HEART: S1, S2 audible. No murmur. ABDOMEN: Soft, nontender, no rebound, no guarding. NEUROLOGIC: The patient is awake and alert, communicative, ambulatory. Left foot is under dressing. LABORATORY EXAM: Her PT is 24.1, INR 2.23. Chemistry: Blood sugar is 102. Her OR cultures are sti ll pending. ASSESSMENT: 1. Left second toe osteomyelitis. 2. Status post amputation. 3. Methicillin-resistant Staphylococcus aureus wound infection. 4. Chronic atrial fibrillation. 5. Hypertension. 6. Hyperlipidemia. 7. Generalized osteoarthritis. 8. Remote cerebrovascular accident. 9. Chronic kidney disease. PLAN: The patient is therapeutic now. Awaiting OR cultures to make decision with antibiotic. The p atient has to be discharged. Hopefully it will be back by tomorrow and we will make a final determin ation of disposition. Mary Wilkerson MD cc: [phone] TT: 09/30/2016 13:12:50 Confirmation # [id number] Dictation # [id number] lexus
--- NOTE | 2016-09-30 16:15 | CP.PCM.PN ---
Subjective - Date & Time of Evaluation Date of Evaluation: 09/30/16 Time of Evaluation: 10:30 - Subjective Subjective: Patient is comfortable in bed, not in distress, afebrile overnight. Objective - Vital Signs/Intake and Output Vital Signs (last 24 hours): Temp Pulse Resp BP Pulse Ox 98.3 F 72 17 150/70 94 L 09/30/16 09:00 09/30/16 09:21 09/30/16 09:00 09/30/16 09:21 09/30/16 09:00 Intake and Output: 09/30/16 09/30/16 06:59 18:59 Intake Total 600 Balance 600 - Medications Medications: Current Medications Acetaminophen (Tylenol 325mg Tab) 650 mg PO Q6H PRN PRN Reason: Fever >100.4 F Last Admin: 09/29/16 10:02 Dose: 650 mg Acetaminophen (Tylenol 325mg Tab) 650 mg PO Q4H PRN PRN Reason: Pain, Mild (1-3) Alprazolam (Xanax) 0.25 mg PO QID [facility] PRN Reason: Protocol Stop: 10/05/16 18:01 Last Admin: 09/30/16 09:22 Dose: 0.25 mg Atenolol (Tenormin) 25 mg PO DAILY [facility] Last Admin: 09/30/16 09:21 Dose: 25 mg Atorvastatin Calcium (Lipitor) 10 mg PO DAILY [facility] Last Admin: 09/30/16 09:21 Dose: 10 mg Digoxin (Lanoxin) 0.25 mg PO DAILY [facility] Last Admin: 09/30/16 09:21 Dose: 0.25 mg Escitalopram Oxalate (Lexapro) 20 mg PO DAILY [facility] Last Admin: 09/30/16 09:21 Dose: 20 mg Glipizide (Glucotrol) 5 mg PO BID [facility] Last Admin: 09/30/16 09:21 Dose: 5 mg Daptomycin 250 mg/ Sodium (Chloride) 100 mls @ 200 mls/hr IV Q24H [facility] PRN Reason: Protocol Stop: 09/30/16 19:01 Last Admin: 09/29/16 15:00 Dose: 200 mls/hr Insulin Human Regular (Humulin R Med) 0 units SC ACHS [facility] PRN Reason: Protocol Last Admin: 09/30/16 08:53 Dose: Not Given Losartan Potassium (Cozaar) 50 mg PO DAILY [facility] Last Admin: 09/30/16 09:20 Dose: 50 mg Metformin HCl (Glucophage) 500 mg PO ACBD [facility] Last Admin: 09/30/16 09:20 Dose: 500 mg Mupirocin (Bactroban Ointment) 0 gm TOP BID [facility] Last Admin: 09/30/16 09:13 Dose: 1 applic Sitagliptin Phosphate (Januvia) 50 mg PO DAILY [facility] Last Admin: 09/30/16 09:21 Dose: 50 mg Warfarin Sodium (Coumadin) 6 mg PO 1800 [facility] PRN Reason: Protocol Last Admin: 09/29/16 17:38 Dose: 6 mg - Labs Labs: 09/28/16 06:40 09/28/16 06:40 PT 24.1 Seconds (9.9-11.8) H 09/30/16 07:30 INR 2.23 (0.93-1.08) H 09/30/16 07:30 - Constitutional Appears: Non-toxic, No Acute Distress - Head Exam Head Exam: NORMAL INSPECTION - Neck Exam Neck Exam: absent: Lymphadenopathy, Meningismus - Respiratory Exam Respiratory Exam: Decreased Breath Sounds - Cardiovascular Exam Cardiovascular Exam: +S1, +S2 - GI/Abdominal Exam GI & Abdominal Exam: Soft. absent: Tenderness Assessment and Plan - Assessment and Plan (Free Text) Plan: Assessment left 2nd toe ulcer with osteomyelitis, growing MRSA, S/P partial amputation of the 2nd toe, POD #4 history of osteomyelitis of the right foot 2nd toe with associated ulcer, with Methicillin-sensitive Staph aureus S/P amputation Acute renal failure HTN DM history of bronchitis history of peripheral vascular disease history of transient ischemic attack history of CVA arthritis anxiety disorder Plan continue Daptomycin; OR pathology showed bone margins to be free of inflammation ; target 5-7 days of antibiotics (from time of surgery ie. today is day 4 of antibiotics from time of surgery) Will continue to follow clinically
--- NOTE | 2016-09-30 20:27 | PN ---
DATE: 09/30/2016 ADDENDUM The patient's pathology from the surgery has come back. There was osteomyelitis noted to the amputat ed distal aspect; however, the cartilage of the middle phalanx was noted to be free and there are no signs of infection in the resected ends of the bone; thus, the patient no longer has osteomyelitis. The patient's dressing was changed today. If she is going to be discharged that dressing can stay in place and she should come to the wound care center on Friday or to the office on . I will d iscuss this with the patient and/or her son to see which is better for her. Janelle Mota DPM cc: [phone] TT: 09/30/2016 20:26:20 Confirmation # [id number] Dictation # [id number] lexus
[2016-10-01] MEDS: Insulin Reg-MEDIUM-Coverage SC SCH ×4 (08:33→22:00)
[2016-10-01] MEDS: Digoxin 250 mcg (0.25 mg) Tab PO SCH (10:45)
--- NOTE | 2016-10-01 11:43 | CP.PCM.PN ---
<GilsonLoreto - Last Filed: 10/01/16 11:41> Subjective - Date & Time of Evaluation Date of Evaluation: 10/01/16 Time of Evaluation: 11:41 - Subjective Subjective: 85 y/o female seen at bedside 5 days s/p left 2nd partial digit amputation. Patient is resting comfortably, in NAD and AAOx3. Patient denies any pain in her foot and denies any pedal complaints at this time. patient's dressing remains clean,dry,intact to left foot. She denies n/f/v/c/d/sob. Objective - Vital Signs/Intake and Output Vital Signs (last 24 hours): Temp Pulse Resp BP Pulse Ox 98 F 71 19 147/66 99 09/30/16 16:00 10/01/16 10:38 09/30/16 16:00 10/01/16 10:38 09/30/16 16:00 Intake and Output: 10/01/16 10/01/16 06:59 18:59 Intake Total 300 Output Total 3 Balance 297 - Medications Medications: Current Medications Acetaminophen (Tylenol 325mg Tab) 650 mg PO Q6H PRN PRN Reason: Fever >100.4 F Last Admin: 09/29/16 10:02 Dose: 650 mg Acetaminophen (Tylenol 325mg Tab) 650 mg PO Q4H PRN PRN Reason: Pain, Mild (1-3) Alprazolam (Xanax) 0.25 mg PO QID [facility] PRN Reason: Protocol Stop: 10/05/16 18:01 Last Admin: 10/01/16 10:45 Dose: 0.25 mg Atenolol (Tenormin) 25 mg PO DAILY [facility] Last Admin: 10/01/16 10:46 Dose: 25 mg Atorvastatin Calcium (Lipitor) 10 mg PO DAILY [facility] Last Admin: 10/01/16 10:45 Dose: 10 mg Digoxin (Lanoxin) 0.25 mg PO DAILY [facility] Last Admin: 10/01/16 10:45 Dose: 0.25 mg Escitalopram Oxalate (Lexapro) 20 mg PO DAILY [facility] Last Admin: 10/01/16 10:45 Dose: 20 mg Glipizide (Glucotrol) 5 mg PO BID [facility] Last Admin: 10/01/16 10:38 Dose: 5 mg Insulin Human Regular (Humulin R Med) 0 units SC [facility] PRN Reason: Protocol Last Admin: 10/01/16 08:33 Dose: Not Given Losartan Potassium (Cozaar) 50 mg PO DAILY [facility] Last Admin: 10/01/16 10:38 Dose: 50 mg Metformin HCl (Glucophage) 500 mg PO ACBD [facility] Last Admin: 10/01/16 10:38 Dose: 500 mg Mupirocin (Bactroban Ointment) 0 gm TOP BID [facility] Last Admin: 10/01/16 10:38 Dose: 1 applic Sitagliptin Phosphate (Januvia) 50 mg PO DAILY [facility] Last Admin: 10/01/16 10:39 Dose: 50 mg Warfarin Sodium (Coumadin) 6 mg PO 1800 [facility] PRN Reason: Protocol Last Admin: 09/30/16 18:04 Dose: 6 mg - Labs Labs: 09/28/16 06:40 09/28/16 06:40 PT 24.1 Seconds (9.9-11.8) H 09/30/16 07:30 INR 2.23 (0.93-1.08) H 09/30/16 07:30 - Constitutional Appears: Well, Non-toxic, No Acute Distress - Extremities Exam Additional comments: left foot focused: dressing to left foot remains c.d.i no pain or tenderness to calf no strikethrough on bandage - Neurological Exam Neurological Exam: Alert, Awake, Oriented x3 - Psychiatric Exam Psychiatric exam: Normal Affect, Normal Mood Assessment and Plan - Assessment and Plan (Free Text) Assessment: 85 y/o female seen at bedside 5 days s/p left 2nd digit partial amputation Plan: patient evaluated and chart reviewed discussed in detail with Dr. Coronado labs and vitals reviewed continue IV abx as per ID reinforced dressing to left foot using WOO patient instructed to ambulate in surgical shoe at all times patient to keep dressing c.d.i until follow up appt with Dr. Mota OR cultures of proximal margins came back negative for OM patient stable for d/c from podiatry standpoint podiatry will continue to follow while patient remains in house <Rajiv Coronado - Last Filed: 10/01/16 12:39> Objective - Vital Signs/Intake and Output Vital Signs (last 24 hours): Temp Pulse Resp BP Pulse Ox 98 F 71 19 147/66 99 09/30/16 16:00 10/01/16 10:38 09/30/16 16:00 10/01/16 10:38 09/30/16 16:00 Intake and Output: 10/01/16 10/01/16 06:59 18:59 Intake Total 300 Output Total 3 Balance 297 - Medications Medications: Current Medications Acetaminophen (Tylenol 325mg Tab) 650 mg PO Q6H PRN PRN Reason: Fever >100.4 F Last Admin: 09/29/16 10:02 Dose: 650 mg Acetaminophen (Tylenol 325mg Tab) 650 mg PO Q4H PRN PRN Reason: Pain, Mild (1-3) Alprazolam (Xanax) 0.25 mg PO QID [facility] PRN Reason: Protocol Stop: 10/05/16 18:01 Last Admin: 10/01/16 10:45 Dose: 0.25 mg Atenolol (Tenormin) 25 mg PO DAILY [facility] Last Admin: 10/01/16 10:46 Dose: 25 mg Atorvastatin Calcium (Lipitor) 10 mg PO DAILY [facility] Last Admin: 10/01/16 10:45 Dose: 10 mg Digoxin (Lanoxin) 0.25 mg PO DAILY [facility] Last Admin: 10/01/16 10:45 Dose: 0.25 mg Escitalopram Oxalate (Lexapro) 20 mg PO DAILY [facility] Last Admin: 10/01/16 10:45 Dose: 20 mg Glipizide (Glucotrol) 5 mg PO BID [facility] Last Admin: 10/01/16 10:38 Dose: 5 mg Insulin Human Regular (Humulin R Med) 0 units SC ACHS [facility] PRN Reason: Protocol Last Admin: 10/01/16 12:23 Dose: Not Given Losartan Potassium (Cozaar) 50 mg PO DAILY [facility] Last Admin: 10/01/16 10:38 Dose: 50 mg Metformin HCl (Glucophage) 500 mg PO ACBD [facility] Last Admin: 10/01/16 10:38 Dose: 500 mg Mupirocin (Bactroban Ointment) 0 gm TOP BID [facility] Last Admin: 10/01/16 10:38 Dose: 1 applic Sitagliptin Phosphate (Januvia) 50 mg PO DAILY [facility] Last Admin: 10/01/16 10:39 Dose: 50 mg Warfarin Sodium (Coumadin) 6 mg PO 1800 [facility] PRN Reason: Protocol Last Admin: 09/30/16 18:04 Dose: 6 mg - Labs Labs: 09/28/16 06:40 09/28/16 06:40 PT 24.1 Seconds (9.9-11.8) H 09/30/16 07:30 INR 2.23 (0.93-1.08) H 09/30/16 07:30 Attending/Attestation - Attestation I have personally seen and examined this patient.: Yes I have fully participated in the care of the patient.: Yes I have reviewed all pertinent clinical information, including history, physical exam and plan: Yes
--- NOTE | 2016-10-01 16:12 | CP.PCM.PN ---
Subjective - Date & Time of Evaluation Date of Evaluation: 10/01/16 Time of Evaluation: 09:25 - Subjective Subjective: Comfortable in bed, no fevers, not in distress. Objective - Vital Signs/Intake and Output Vital Signs (last 24 hours): Temp Pulse Resp BP Pulse Ox 98 F 71 19 147/66 99 09/30/16 16:00 10/01/16 10:38 09/30/16 16:00 10/01/16 10:38 09/30/16 16:00 Intake and Output: 10/01/16 10/01/16 06:59 18:59 Intake Total 300 Output Total 3 Balance 297 - Medications Medications: Current Medications Acetaminophen (Tylenol 325mg Tab) 650 mg PO Q6H PRN PRN Reason: Fever >100.4 F Last Admin: 09/29/16 10:02 Dose: 650 mg Acetaminophen (Tylenol 325mg Tab) 650 mg PO Q4H PRN PRN Reason: Pain, Mild (1-3) Alprazolam (Xanax) 0.25 mg PO QID [facility] PRN Reason: Protocol Stop: 10/05/16 18:01 Last Admin: 10/01/16 10:45 Dose: 0.25 mg Atenolol (Tenormin) 25 mg PO DAILY [facility] Last Admin: 10/01/16 10:46 Dose: 25 mg Atorvastatin Calcium (Lipitor) 10 mg PO DAILY [facility] Last Admin: 10/01/16 10:45 Dose: 10 mg Digoxin (Lanoxin) 0.25 mg PO DAILY [facility] Last Admin: 10/01/16 10:45 Dose: 0.25 mg Escitalopram Oxalate (Lexapro) 20 mg PO DAILY [facility] Last Admin: 10/01/16 10:45 Dose: 20 mg Glipizide (Glucotrol) 5 mg PO BID [facility] Last Admin: 10/01/16 10:38 Dose: 5 mg Daptomycin 250 mg/ Sodium (Chloride) 100 mls @ 200 mls/hr IV Q24H [facility] PRN Reason: Protocol Stop: 10/04/16 16:16 Insulin Human Regular (Humulin R Med) 0 units SC ACHS [facility] PRN Reason: Protocol Last Admin: 10/01/16 12:23 Dose: Not Given Losartan Potassium (Cozaar) 50 mg PO DAILY [facility] Last Admin: 10/01/16 10:38 Dose: 50 mg Metformin HCl (Glucophage) 500 mg PO ACBD [facility] Last Admin: 10/01/16 10:38 Dose: 500 mg Mupirocin (Bactroban Ointment) 0 gm TOP BID [facility] Last Admin: 10/01/16 10:38 Dose: 1 applic Sitagliptin Phosphate (Januvia) 50 mg PO DAILY [facility] Last Admin: 10/01/16 10:39 Dose: 50 mg Warfarin Sodium (Coumadin) 6 mg PO 1800 [facility] PRN Reason: Protocol Last Admin: 09/30/16 18:04 Dose: 6 mg - Labs Labs: 09/28/16 06:40 09/28/16 06:40 PT 24.1 Seconds (9.9-11.8) H 09/30/16 07:30 INR 2.23 (0.93-1.08) H 09/30/16 07:30 - Constitutional Appears: Non-toxic, No Acute Distress - Head Exam Head Exam: NORMAL INSPECTION - ENT Exam ENT Exam: Mucous Membranes Moist - Neck Exam Neck Exam: absent: Lymphadenopathy, Meningismus - Respiratory Exam Respiratory Exam: Decreased Breath Sounds - Cardiovascular Exam Cardiovascular Exam: +S1, +S2 - GI/Abdominal Exam GI & Abdominal Exam: Soft. absent: Tenderness Assessment and Plan - Assessment and Plan (Free Text) Plan: Assessment left 2nd toe ulcer with osteomyelitis, growing MRSA, S/P partial amputation of the 2nd toe, POD #5 history of osteomyelitis of the right foot 2nd toe with associated ulcer, with Methicillin-sensitive Staph aureus S/P amputation Acute renal failure HTN DM history of bronchitis history of peripheral vascular disease history of transient ischemic attack history of CVA arthritis anxiety disorder Plan continue Daptomycin; OR pathology showed bone margins to be free of inflammation ; target 5-7 days of antibiotics (from time of surgery ie. today is day 5 of antibiotics from time of surgery) Will continue to follow clinically Discussed with Dr. Wilkerson
--- NOTE | 2016-10-01 22:40 | PN ---
DATE: 10/01/2016 SUBJECTIVE: The patient is an 85-year-old, seen and examined, lying in bed, comfortable. No chest p ain, no shortness of breath. PHYSICAL EXAMINATION: VITAL SIGNS: She is afebrile, pulse 70, respirations 18, blood pressure 126/ . LUNGS: Bilateral good airflow, no rhonchi or crackle. HEART: S1, S2 audible. No murmur. ABDOMEN: Soft, nontender, no rebound, no guarding. NEUROLOGIC: She is awake and alert, communicative, ambulatory. LABORATORY EXAMINATION: PT 24.1, INR 2.23. Chemistry: Blood sugar 99. ASSESSMENT AND PLAN: 1. Status post left second toe amputation with clear margin. 2. Chronic atrial fibrillation. 3. Hypertension. 4. Non-insulin dependent diabetes. 5. Hypertension. 6. Hyperlipidemia. PLAN: I spoke to Dr. Reynoso. We will continue antibiotic for another day and possible discharge in a .m. with home PT. Mary Wilkerson MD cc: [phone] TT: 10/01/2016 22:40:01 Confirmation # [id number] Dictation # [id number]
[2016-10-02] MEDS: Insulin Reg-MEDIUM-Coverage SC SCH ×2 (08:02→12:03)
[2016-10-02] MEDS: Digoxin 250 mcg (0.25 mg) Tab PO SCH (10:04)
[2016-10-02 10:05] VITALS: PULSE 70
--- NOTE | 2016-10-02 13:27 | DS ---
The patient is an 85-year-old, seen and examined, lying in bed, comfortable, eating and tolerating, a mbulating, putting more pressure on the left heel. PHYSICAL EXAMINATION: VITAL SIGNS: She is afebrile, pulse 60, respirations 20, blood pressure 153/70. LUNGS: Bilateral fair airflow, no rhonchi or crackle. HEART: S1, S2 audible. No murmur. ABDOMEN: Soft, nontender, no rebound, no guarding. NEUROLOGIC: She is awake and alert, communicative, ambulatory. EXTREMITIES: Left foot is in the dressing. LABORATORY EXAMINATION: She has MRSA in her left wound. ASSESSMENT: 1. Status post left second toe amputation. Margins are clear. Wound was positive for methicillin r esistant Staphylococcus aureus. The patient received daptomycin. 2. Non-insulin dependent diabetes. 3. Hypertension. 4. Chronic atrial fibrillation. 5. Hyperlipidemia. PLAN: The patient has finished her 5 days of daptomycin after procedure. Her PT/INR is therapeutic. The patient can be discharged home today. She will resume her usual medication including Coumadin as she was taking before, simvastatin 20 mg daily. She is on Januvia, metformin and glipizide. She will also continue on Lexapro, Nexium, digoxin and atenolol. She will follow up with Dr. Hernandez as outpatient and she will follow up with Dr. Mota on Friday for a wound check. Mary Wilkerson MD cc: [phone] TT: 10/02/2016 13:27:28 en
--- NOTE | 2016-10-02 13:35 | CP.PCM.PN ---
Subjective - Date & Time of Evaluation Date of Evaluation: 10/02/16 Time of Evaluation: 13:33 - Subjective Subjective: 85 y/o female seen at bedside with attending Dr. Mota 6 days s/p left 2nd partial digit amputation. Patient is resting comfortably, in NAD and AAOx3. Patient denies any pain in her foot and denies any pedal complaints at this time. patient's dressing remains clean,dry,intact to left foot. She denies n/f/v /c/d/sob. Objective - Vital Signs/Intake and Output Vital Signs (last 24 hours): Temp Pulse Resp BP Pulse Ox 98.8 F 60 20 153/70 H 96 10/02/16 06:00 10/02/16 06:00 10/02/16 06:00 10/02/16 06:00 10/02/16 06:00 Intake and Output: 10/02/16 10/02/16 06:59 18:59 Intake Total 660 Balance 660 - Medications Medications: Current Medications Acetaminophen (Tylenol 325mg Tab) 650 mg PO Q6H PRN PRN Reason: Fever >100.4 F Last Admin: 09/29/16 10:02 Dose: 650 mg Acetaminophen (Tylenol 325mg Tab) 650 mg PO Q4H PRN PRN Reason: Pain, Mild (1-3) Alprazolam (Xanax) 0.25 mg PO QID [facility] PRN Reason: Protocol Stop: 10/05/16 18:01 Last Admin: 10/02/16 13:25 Dose: 0.25 mg Atenolol (Tenormin) 25 mg PO DAILY [facility] Last Admin: 10/02/16 10:05 Dose: 25 mg Atorvastatin Calcium (Lipitor) 10 mg PO DAILY [facility] Last Admin: 10/02/16 10:05 Dose: 10 mg Digoxin (Lanoxin) 0.25 mg PO DAILY [facility] Last Admin: 10/02/16 10:04 Dose: 0.25 mg Escitalopram Oxalate (Lexapro) 20 mg PO DAILY [facility] Last Admin: 10/02/16 10:04 Dose: 20 mg Glipizide (Glucotrol) 5 mg PO BID [facility] Last Admin: 10/02/16 10:03 Dose: 5 mg Daptomycin 250 mg/ Sodium (Chloride) 100 mls @ 200 mls/hr IV Q24H [facility] PRN Reason: Protocol Stop: 10/07/16 11:31 Last Admin: 10/02/16 12:03 Dose: 200 mls/hr Insulin Human Regular (Humulin R Med) 0 units SC ACHS [facility] PRN Reason: Protocol Last Admin: 10/02/16 12:03 Dose: 1 units Losartan Potassium (Cozaar) 50 mg PO DAILY [facility] Last Admin: 10/02/16 10:03 Dose: 50 mg Metformin HCl (Glucophage) 500 mg PO ACBD [facility] Last Admin: 10/02/16 10:03 Dose: 500 mg Mupirocin (Bactroban Ointment) 0 gm TOP BID [facility] Last Admin: 10/02/16 10:03 Dose: 1 applic Sitagliptin Phosphate (Januvia) 50 mg PO DAILY [facility] Last Admin: 10/02/16 10:04 Dose: 50 mg Warfarin Sodium (Coumadin) 6 mg PO 1800 [facility] PRN Reason: Protocol Last Admin: 10/01/16 17:28 Dose: 6 mg - Labs Labs: 09/28/16 06:40 09/28/16 06:40 PT 24.1 Seconds (9.9-11.8) H 09/30/16 07:30 INR 2.23 (0.93-1.08) H 09/30/16 07:30 - Constitutional Appears: Well, Non-toxic, No Acute Distress - Extremities Exam Additional comments: Vasc: nonpalpable DP or PT pulses bilaterally, absent pedal hair growth, lower extremity skin shiny and discolored, CFT < 5 sec to all digits neuro: grossly diminished derm; surgical incision site well coapted, no active bleeding, sutures intact, no ascending cellulitis, mild swelling noted, no purulence, no dehiscence ortho: no pain on palpation to 2nd digit of left foot - Neurological Exam Neurological Exam: Alert, Awake, Oriented x3 - Psychiatric Exam Psychiatric exam: Normal Affect, Normal Mood Assessment and Plan - Assessment and Plan (Free Text) Assessment: 85 y/o female seen at bedside 6 days s/p left 2nd digit partial amputation Plan: patient evaluated and chart reviewed seen at bedside with attending Dr. Mota labs and vitals reviewed continue IV abx as per ID applied betadine, DSD to left foot patient instructed to keep dressing clean,dry,intact until follow up with Dr. Mota patient instructed to ambulate in surgical shoe at all times OR cultures of proximal margins came back negative for OM patient stable for d/c from podiatry standpoint podiatry will continue to follow while patient remains in house
--- NOTE | 2016-10-02 14:13 | CP.PCM.PN ---
Subjective - Date & Time of Evaluation Date of Evaluation: 10/02/16 Time of Evaluation: 09:50 - Subjective Subjective: Comfortable, not in distress, no fevers overnight. Objective - Vital Signs/Intake and Output Vital Signs (last 24 hours): Temp Pulse Resp BP Pulse Ox 98.8 F 60 20 153/70 H 96 10/02/16 06:00 10/02/16 06:00 10/02/16 06:00 10/02/16 06:00 10/02/16 06:00 Intake and Output: 10/02/16 10/02/16 06:59 18:59 Intake Total 660 Balance 660 - Medications Medications: Current Medications Acetaminophen (Tylenol 325mg Tab) 650 mg PO Q6H PRN PRN Reason: Fever >100.4 F Last Admin: 09/29/16 10:02 Dose: 650 mg Acetaminophen (Tylenol 325mg Tab) 650 mg PO Q4H PRN PRN Reason: Pain, Mild (1-3) Alprazolam (Xanax) 0.25 mg PO QID [facility] PRN Reason: Protocol Stop: 10/05/16 18:01 Last Admin: 10/01/16 21:59 Dose: 0.25 mg Atenolol (Tenormin) 25 mg PO DAILY [facility] Last Admin: 10/01/16 10:46 Dose: 25 mg Atorvastatin Calcium (Lipitor) 10 mg PO DAILY [facility] Last Admin: 10/01/16 10:45 Dose: 10 mg Digoxin (Lanoxin) 0.25 mg PO DAILY [facility] Last Admin: 10/01/16 10:45 Dose: 0.25 mg Escitalopram Oxalate (Lexapro) 20 mg PO DAILY [facility] Last Admin: 10/01/16 10:45 Dose: 20 mg Glipizide (Glucotrol) 5 mg PO BID [facility] Last Admin: 10/01/16 17:28 Dose: 5 mg Daptomycin 250 mg/ Sodium (Chloride) 100 mls @ 200 mls/hr IV Q24H [facility] PRN Reason: Protocol Stop: 10/04/16 16:16 Last Admin: 10/01/16 17:32 Dose: 200 mls/hr Insulin Human Regular (Humulin R Med) 0 units SC ACHS [facility] PRN Reason: Protocol Last Admin: 10/02/16 08:02 Dose: Not Given Losartan Potassium (Cozaar) 50 mg PO DAILY [facility] Last Admin: 10/01/16 10:38 Dose: 50 mg Metformin HCl (Glucophage) 500 mg PO ACBD [facility] Last Admin: 10/01/16 17:28 Dose: 500 mg Mupirocin (Bactroban Ointment) 0 gm TOP BID [facility] Last Admin: 10/01/16 17:28 Dose: 1 applic Sitagliptin Phosphate (Januvia) 50 mg PO DAILY [facility] Last Admin: 10/01/16 10:39 Dose: 50 mg Warfarin Sodium (Coumadin) 6 mg PO 1800 [facility] PRN Reason: Protocol Last Admin: 10/01/16 17:28 Dose: 6 mg - Labs Labs: 09/28/16 06:40 09/28/16 06:40 PT 24.1 Seconds (9.9-11.8) H 09/30/16 07:30 INR 2.23 (0.93-1.08) H 09/30/16 07:30 - Constitutional Appears: Non-toxic, No Acute Distress - Head Exam Head Exam: NORMAL INSPECTION - Respiratory Exam Respiratory Exam: Decreased Breath Sounds - Cardiovascular Exam Cardiovascular Exam: +S1, +S2 - GI/Abdominal Exam GI & Abdominal Exam: Soft. absent: Tenderness Assessment and Plan - Assessment and Plan (Free Text) Plan: Assessment left 2nd toe ulcer with osteomyelitis, growing MRSA, S/P partial amputation of the 2nd toe, POD #6 history of osteomyelitis of the right foot 2nd toe with associated ulcer, with Methicillin-sensitive Staph aureus S/P amputation Acute renal failure HTN DM history of bronchitis history of peripheral vascular disease history of transient ischemic attack history of CVA arthritis anxiety disorder Plan continue Daptomycin; OR pathology showed bone margins to be free of inflammation ; target 5-7 days of antibiotics (from time of surgery ie. today is day 6 of antibiotics from time of surgery) - as discussed with Dr. Wilkerson, today's Daptomycin dose can be given and then discontinued
[2016-10-02 16:20] VITALS: BP 148/72; PULSE 64; RESP 18; TEMP 97.8; O2SAT 97
== END 2016-10-02 17:00 | disposition home health service (06) | DRG 617 ==
LOC: ED 11:00 → ERH 11:40 → 3RSO 13:25
PROVIDERS: ADMIT Internal Medicine; ATTEND Internal Medicine
PROC: 0Y6S0Z3 Detachment at Left 2nd Toe, Low, Open Approach (ICD-10-PCS; principal; 2016-09-26 07:30)
DX: E11.69 Type 2 diabetes mellitus with other specified complication (principal); M86.172 Other acute osteomyelitis, left ankle and foot; N17.9 Acute kidney failure, unspecified; D68.9 Coagulation defect, unspecified; E11.22 Type 2 diabetes mellitus with diabetic chronic kidney disease; I08.3 Combined rheumatic disorders of mitral, aortic and tricuspid valves; I27.2 Other secondary pulmonary hypertension; E11.621 Type 2 diabetes mellitus with foot ulcer; I48.0 Paroxysmal atrial fibrillation; E11.622 Type 2 diabetes mellitus with other skin ulcer; D64.9 Anemia, unspecified; D72.821 Monocytosis (symptomatic); E04.1 Nontoxic single thyroid nodule; L97.529 Non-pressure chronic ulcer of other part of left foot with unspecified severity; L03.032 Cellulitis of left toe; I12.9 Hypertensive chronic kidney disease with stage 1 through stage 4 chronic kidney disease, or unspecified chronic kidney disease; N18.9 Chronic kidney disease, unspecified; E78.5 Hyperlipidemia, unspecified; F41.9 Anxiety disorder, unspecified; I25.10 Atherosclerotic heart disease of native coronary artery without angina pectoris; Z98.61 Coronary angioplasty status; Z89.422 Acquired absence of other left toe(s); Z87.01 Personal history of pneumonia (recurrent); Z86.73 Personal history of transient ischemic attack (TIA), and cerebral infarction without residual deficits; Z86.718 Personal history of other venous thrombosis and embolism; Z86.14 Personal history of Methicillin resistant Staphylococcus aureus infection; Z79.899 Other long term (current) drug therapy; Z79.84 Long term (current) use of oral hypoglycemic drugs; Z79.01 Long term (current) use of anticoagulants; M15.9 Polyosteoarthritis, unspecified; J44.9 Chronic obstructive pulmonary disease, unspecified; I65.29 Occlusion and stenosis of unspecified carotid artery; I48.2 Chronic atrial fibrillation; I25.5 Ischemic cardiomyopathy; Z88.0 Allergy status to penicillin; Z88.7 Allergy status to serum and vaccine; Z98.49 Cataract extraction status, unspecified eye; B95.61 Methicillin susceptible Staphylococcus aureus infection as the cause of diseases classified elsewhere